=== PATIENT | female | born 1960 | race Caucasian/White ===

== ENCOUNTER 2020-03-26 00:05 | Outpatient (CLI) | payer BC, SELFPAY ==
[2020-03-26 18:07] LABS: SARS-CoV-2 RNA PCR Negative
== END 2020-03-26 00:06 | disposition home or self-care (01) ==
LOC: ANHCOVIDDT 00:05
PROVIDERS: PCP Physician Assistant; Visit Provider Orthopaedic Surgery
DX: Z01.812 Encounter for preprocedural laboratory examination (principal); Z20.828 Contact with and (suspected) exposure to other viral communicable diseases
CPT/HCPCS: 87635; C9803; U0003

== ENCOUNTER 2020-03-26 10:28 | Outpatient (CLI) | payer BC, SELFPAY ==
--- NOTE | 2020-03-26 10:29 | ECG_ITS ---
Measurements Intervals [place] Rate: 68 P: 3 DC: 120 QRS: 10 QRSD: 86 T: 24 QT: 411 QTc: 439 Interpretive Statements SINUS RHYTHM DELAYED PRECORDIAL R/S TRANSITION BASELINE ARTIFACT- I, II, III, AVR, AVL, AVF BORDERLINE ECG Electronically Signed On 03-26-2020 11:10:54 CDT by Pierre Hernandez D.O.
[2020-03-26 11:11] LABS: Blood Urea Nitrogen 14 mg/dL (7-17); Calcium 9.3 mg/dL (8.4-10.2); Carbon Dioxide 29 mmol/L (22-30); Chloride 100 mmol/L (98-107); Estimated Glomerular Filt Rate > 60; Glucose 100 mg/dL (65-105); Potassium 3.7 mmol/L (3.4-5.0); Sodium 137 mmol/L (137-145)
== END 2020-03-26 10:29 | disposition home or self-care (01) ==
LOC: ANHSURGERY 10:29
PROVIDERS: Anesthesiology; PCP Physician Assistant; Visit Provider Orthopaedic Surgery
DX: Z86.79 Personal history of other diseases of the circulatory system (principal); Z79.899 Other long term (current) drug therapy
CPT/HCPCS: 36415; 80048; 93005

== ENCOUNTER 2020-03-28 01:26 | Day surgery (SDC) | payer BC, SELFPAY ==
[2020-03-21 11:27] VITALS: BMI 27.4
[2020-03-28 06:11] VITALS: BP 134/79; PULSE 66; RESP 16; TEMP 36.1; O2SAT 99
[2020-03-28] MEDS: LACTATED RINGERS 1,000 ML 30 ML IV CONT (06:20)
--- NOTE | 2020-03-28 06:59 | WPDANESEPPF ---
Anes - Initial Pre Proc Eval Procedure: Operation Date: 03/28/20 07:30 Proposed Procedures p Right Carpal Tunnel Release, - Cj Hickman MD s Right Third Trigger Finger Release - Cj Hickman MD Date/Time: 03/28/20 06:59 Surgeon: Cj Hickman MD Pre Op Diagnosis: right carpal tunnel syndrome, rt 3rd trigger figer Patient Data Age: 60 Gender: F Height: 5 ft 6 in Weight: 80.8 kg Last Vital Signs Temp 36.1 C L 03/28/20 06:11 Pulse 66 03/28/20 06:11 Resp 16 03/28/20 06:11 BP 134/79 03/28/20 06:11 Pulse Ox 99 03/28/20 06:11 Allergies Allergy/AdvReac Type Severity Reaction Status Date / Time No Known Allergies Allergy Unverified 03/28/20 06:30 Home Medications Medication Instructions Recorded Confirmed Type aspirin 81 mg tablet,delayed 81 mg PO DAILY 12/21/19 03/28/20 History release conjugated estrogens 0.3 mg tablet 0.3 mg PO DAILY 12/21/19 03/28/20 History dicyclomine 10 mg capsule 10 mg PO TID PRN 12/21/19 03/28/20 History flaxseed oil 1,000 mg capsule 1,000 mg PO DAILY 12/21/19 03/28/20 History hydrochlorothiazide 25 mg tablet 25 mg PO DAILY 12/21/19 03/28/20 History omega-3 fatty acids 1,000 mg 1,000 mg PO DAILY 12/21/19 03/28/20 History capsule paroxetine HCl 25 mg 25 mg PO QAM 12/21/19 03/28/20 History tablet,extended release 24 hr pravastatin 40 mg tablet 40 mg PO DAILY 12/21/19 03/28/20 History vitamin B complex 1 tablet PO DAILY 12/21/19 03/28/20 History Patient hx anesthesia problems: none Family hx anesthesia problems: none [facility] Past Medical History Medical History Carpal tunnel syndrome on both sides History of anxiety History of gastroesophageal reflux (GERD) History of hyperlipidemia History of hypertension Irritable bowel syndrome Surgical History Surgical History History of hysterectomy History of tonsillectomy Family History Family History Father Family history of Parkinson's disease Family history of heart disease in male family member before age 55 Mother Family history of Parkinson's disease Social History Social History Smoking status: Never smoker Alcohol intake: current Anes - Eval Final PreProcedure Day of Procedure 03/28/20 06:59 Patient weight: overweight Heart: regular rate and rhythm Lungs: clear to auscultation Airway: Mallampati scale class II Neurological: alert and oriented Last oral intake: >/= 8 hours ASA classification: II Emergent: no Anesthetic plan: proceed Anesthesia type and monitoring: general GIVS and standard monitoring Informed Consent: The patient's anesthetic plan and its attendant risks and benefits were discussed with the patient/family/POA. Questions were solicited and answers provided to the satisfaction of the patient/family/POA.
--- NOTE | 2020-03-28 07:08 | WPDHPUPDATE1 ---
History and Physical Update Update Date/Time: 03/28/20 07:08 History and Physical has been reviewed, including an updated exam of the patient. There are NO changes in the patient's condition. Risks, benefits, and alternatives have been discussed and questions answered. Patient agrees to proceed with procedure.
[2020-03-28] MEDS: ceFAZolin 2 GM/D5W 50 ML 2 GM/50 ML BAG IVPB (07:22)
[2020-03-28] MEDS: BUPIVACAINE/EPINEPHRINE 0.5% 10 ML VIAL INFILTRATE (07:45)
[2020-03-28 08:04] VITALS: BP 129/72; PULSE 80; RESP 16; O2SAT 90
[2020-03-28 08:30] VITALS: BP 144/79; PULSE 62; RESP 16; O2SAT 94
[2020-03-28 08:50] VITALS: BP 150/83; PULSE 56; RESP 16; O2SAT 97
--- NOTE | 2020-03-28 17:10 | P.OP_ITS ---
Procedure Note - Detailed Date of procedure: 03/28/20 Pre-op diagnosis: right carpal tunnel syndrome, rt 3rd trigger figer Post-op diagnosis: same Procedure performed: 1. Carpal Tunnel Release 2. Third trigger finger release. Anesthesia: MAC Surgeon: Cj Hickman MD Estimated blood loss (mL): 1 Complications: None Condition: stable Findings: Operative details. The hand was prepped and draped in the usual sterile fashion sedation anesthesia was given with propofol. The proposed in cision was marked using typical anatomic landmarks. 4ML 0.5% Marcaine with epinephrine was injected along the incision line and at the distal forearm. The limb was exsanguinated and the tourniquet inflated to 250 millimeters of mercury. A longitudinal incision was taken sharply. Dissection was brought down to the transverse carpal ligament. Under direct vision the ligament was incised sharply. The proximal release was carried out with dissection scissors. The contents of the carpal canal were protected with a [place] elevator. The transverse carpal ligament was confirmed to be widely patent. Hemostasis was obtained. The wound was closed with a horizontal mattress Prolene suture. Attention was turned to the 3rd finger. A transverse incision was created over the A1 teagan, proximally. Careful dissection was carried down with the scissors. The A1 teagan was identified and transverse longitudinally. The flexor tendons were pulled free. The thickening of the tendon was identified. There was no further triggering. The tourniquet was released. The wound was closed with interrupted horizontal mattress Prolene suture. A sterile bulky dressing was applied. The patient was brought to the recovery room in stable condition. There were no complications.
== END 2020-03-28 09:10 | disposition home or self-care (01) ==
PROVIDERS: PCP Physician Assistant; Visit Provider Orthopaedic Surgery
PROC: (CPT 64721; principal; 2020-03-28 07:30)
PROC: (CPT 26055; 2020-03-28 07:30)
DX: G56.01 Carpal tunnel syndrome, right upper limb (principal); M65.331 Trigger finger, right middle finger; Z79.82 Long term (current) use of aspirin; I10 Essential (primary) hypertension; E78.5 Hyperlipidemia, unspecified; K21.9 Gastro-esophageal reflux disease without esophagitis; K58.9 Irritable bowel syndrome, unspecified; F41.9 Anxiety disorder, unspecified
CPT/HCPCS: 64721; 26055; J0690; J2250; J2704; J3010; J7120

== ENCOUNTER 2020-04-09 00:16 | Outpatient (CLI) | payer BC, SELFPAY ==
[2020-04-09 17:33] LABS: SARS-CoV-2 RNA PCR Negative
== END 2020-04-09 00:17 | disposition home or self-care (01) ==
LOC: ANHCOVIDDT 00:16
PROVIDERS: PCP Physician Assistant; Visit Provider Orthopaedic Surgery
DX: Z01.818 Encounter for other preprocedural examination (principal); Z20.828 Contact with and (suspected) exposure to other viral communicable diseases
CPT/HCPCS: 87635; C9803; U0003

== ENCOUNTER 2020-04-11 00:22 | Day surgery (SDC) | payer BC, SELFPAY ==
--- NOTE | 2020-04-10 12:13 | P.PNAN_ITS ---
Anes - Initial Pre Proc Eval Procedure: Operation Date: 04/11/20 07:30 Proposed Procedures p Left Carpal Tunnel Release - jC Hickman MD Date/Time: 04/10/20 12:13 Surgeon: Cj Hickman MD Pre Op Diagnosis: left carpal tunnel syndrome Patient Data Age: 60 Gender: F Height: Weight: 77.2 kg Allergies Allergy/AdvReac Type Severity Reaction Status Date / Time No Known Allergies Allergy Verified 04/01/20 10:18 Home Medications Medication Instructions Recorded Confirmed Type aspirin 81 mg tablet,delayed 81 mg PO DAILY 12/21/19 04/01/20 History release conjugated estrogens 0.3 mg tablet 0.3 mg PO DAILY 12/21/19 04/01/20 History dicyclomine 10 mg capsule 10 mg PO TID PRN 12/21/19 04/01/20 History flaxseed oil 1,000 mg capsule 1,000 mg PO DAILY 12/21/19 04/01/20 History hydrochlorothiazide 25 mg tablet 25 mg PO DAILY 12/21/19 04/01/20 History omega-3 fatty acids 1,000 mg 1,000 mg PO DAILY 12/21/19 04/01/20 History capsule paroxetine HCl 25 mg 25 mg PO QAM 12/21/19 04/01/20 History tablet,extended release 24 hr pravastatin 40 mg tablet 40 mg PO DAILY 12/21/19 04/01/20 History vitamin B complex 1 tablet PO DAILY 12/21/19 04/01/20 History hydrocodone-acetaminophen 1 tablet PO Q4H PRN #30 tablet MDD 03/28/20 04/01/20 Rx Six tablets Patient hx anesthesia problems: none Family hx anesthesia problems: none [facility] Social History Social History Smoking status: Never smoker Alcohol intake: current Anes - Eval Final PreProcedure Day of Procedure 04/10/20 12:13 Patient weight: normal Heart: regular rate and rhythm Lungs: clear to auscultation Airway: Mallampati scale class II Neurological: alert and oriented Last oral intake: >/= 8 hours ASA classification: II Emergent: no Anesthetic plan: proceed Anesthesia type and monitoring: general GIVS and LMA and standard monitoring Informed Consent: The patient's anesthetic plan and its attendant risks and benefits were discussed with the patient/family/POA. Questions were solicited and answers provided to the satisfaction of the patient/family/POA.
[2020-04-11 06:20] VITALS: BP 134/82; PULSE 73; RESP 16; TEMP 36.4; O2SAT 96
[2020-04-11 06:44] VITALS: BMI 28.3
[2020-04-11] MEDS: LACTATED RINGERS 1,000 ML 30 ML IV CONT (06:56)
--- NOTE | 2020-04-11 07:22 | PM.HPGS ---
History of Present Illness History of Present Illness Consent: Risks, benefits, and alternatives have been discussed and questions answered. Patient agrees to proceed with procedure. Chief complaint: left carpal tunnel syndrome Narrative: Kiara Dawn is a 60 year old female presents with left carpal tunnel syndrome. Numbness and tingling in the radial 3 digits. Also follow-up on the contralateral carpal tunnel syndrome release and trigger finger release. She has retained sutures. Review of Systems Constitutional: Constitutional: Denies fever(s) Cardiovascular: Cardiovascular: Denies dyspnea Respiratory: Respiratory: Denies cough and Denies dyspnea PMFSH Past Medical History Medical History Carpal tunnel syndrome on both sides History of anxiety History of gastroesophageal reflux (GERD) History of hyperlipidemia History of hypertension Irritable bowel syndrome Surgical History Surgical History History of hysterectomy History of tonsillectomy Family History Family History Father Family history of Parkinson's disease Family history of heart disease in male family member before age 55 Mother Family history of Parkinson's disease Social History Social History Smoking status: Never smoker Alcohol intake: current Meds Home Medications and Allergies Home Medications Medication Instructions Recorded Confirmed Type aspirin 81 mg tablet,delayed 81 mg PO DAILY 12/21/19 04/11/20 History release conjugated estrogens 0.3 mg tablet 0.3 mg PO DAILY 12/21/19 04/11/20 History dicyclomine 10 mg capsule 10 mg PO TID PRN 12/21/19 04/11/20 History flaxseed oil 1,000 mg capsule 1,000 mg PO DAILY 12/21/19 04/11/20 History hydrochlorothiazide 25 mg tablet 25 mg PO DAILY 12/21/19 04/11/20 History omega-3 fatty acids 1,000 mg 1,000 mg PO DAILY 12/21/19 04/11/20 History capsule paroxetine HCl 25 mg 25 mg PO QAM 12/21/19 04/11/20 History tablet,extended release 24 hr pravastatin 40 mg tablet 40 mg PO DAILY 12/21/19 04/11/20 History vitamin B complex 1 tablet PO DAILY 12/21/19 04/11/20 History hydrocodone-acetaminophen 1 tablet PO Q4H PRN #30 tablet MDD 03/28/20 04/11/20 Rx Six tablets Allergies Allergy/AdvReac Type Severity Reaction Status Date / Time No Known Allergies Allergy Verified 04/01/20 10:18 Vital Signs Vital Signs - 24 hr 04/11/20 06:20 Temperature 36.4 C Pulse Rate 73 Respiratory Rate 16 Blood Pressure 134/82 Pulse Oximetry 96 Exam Narrative: Exam Narrative: Healthy no distress. Alert orient x3. Unlabored breathing. Numbness and tingling in the radial 3 digits on the left hand. Right hand sutures intact without drainage. Good healing. Assessment and Plan Assessment and plan (1) Carpal tunnel syndrome on both sides: Code(s): G56.03 - Carpal tunnel syndrome, bilateral upper limbs Status: Acute Assessment and Plan: Left hand carpal tunnel syndrome. Will benefit from carpal tunnel release. The contralateral sutures from the hand will be removed.
[2020-04-11] MEDS: ceFAZolin 2 GM/D5W 50 ML 2 GM/50 ML BAG IVPB (07:28)
--- NOTE | 2020-04-11 07:57 | PM.PROC ---
Procedure Note - Detailed Date of procedure: 04/11/20 Pre-op diagnosis: left carpal tunnel syndrome Left Carpal Tunnel Syndrome Post-op diagnosis: same Procedure performed: Carpal Tunnel Release Left Suture removal right hand Anesthesia: MAC Surgeon: Cj Hickman MD Estimated blood loss (mL): 1 Complications: None Condition: stable Findings: Operative details. The hand was prepped and draped in the usual sterile fashion sedation anesthesia was given with propofol. The proposed incision was marked using typical anatomic landmarks. 4ML 0.5% Marcaine with epinephrine was injected along the incision line and at the distal forearm. The limb was exsanguinated and the tourniquet inflated to 250 millimeters of mercury. A longitudinal incision was taken sharply. Dissection was brought down to the transverse carpal ligament. Under direct vision the ligament was incised sharply. The proximal release was carried out with dissection scissors. The contents of the carpal canal were protected with a [place] elevator. The transverse carpal ligament was confirmed to be widely patent. The tourniquet was released. Hemostasis was obtained. The wound was closed with a horizontal mattress Prolene suture. A sterile bulky dressing was applied. Sutures at the right wrist and hand were removed. Adhesive bandage placed. The patient was brought to the recovery room in stable condition. There were no complications.
[2020-04-11 08:02] VITALS: BP 109/67; PULSE 78; RESP 14; O2SAT 95
[2020-04-11] MEDS: BUPIVACAINE/EPINEPHRINE 0.5% 10 ML VIAL 5 ML INFILTRATE (08:04)
[2020-04-11 08:20] VITALS: BP 118/60; PULSE 74; RESP 16
[2020-04-11 08:40] VITALS: BP 129/73; PULSE 62; RESP 16
== END 2020-04-11 08:50 | disposition home or self-care (01) ==
PROVIDERS: PCP Physician Assistant; Visit Provider Orthopaedic Surgery
PROC: (CPT 64721; principal; 2020-04-11 07:30)
DX: G56.02 Carpal tunnel syndrome, left upper limb (principal); I10 Essential (primary) hypertension; E78.5 Hyperlipidemia, unspecified; K21.9 Gastro-esophageal reflux disease without esophagitis; F41.9 Anxiety disorder, unspecified; K58.9 Irritable bowel syndrome, unspecified; Z79.82 Long term (current) use of aspirin
CPT/HCPCS: 64721; J0690; J1100; J2250; J2405; J2704; J3010; J7120

== ENCOUNTER 2020-10-20 11:54 | Outpatient (NON) | payer BC, SELFPAY ==
[2020-10-20 22:00] LABS: SARS-CoV-2 RNA PCR Negative
== END 2020-10-20 11:55 ==
PROVIDERS: PCP Physician Assistant; Visit Provider Physician Assistant
DX: R09.81 Nasal congestion (principal)
CPT/HCPCS: 87635; C9803; U0003

== ENCOUNTER 2020-11-04 00:34 | Outpatient (CLI) | payer BC, SELFPAY ==
[2020-11-04 19:42] LABS: SARS-CoV-2 RNA PCR Negative
== END 2020-11-04 00:35 | disposition home or self-care (01) ==
LOC: ANHCOVIDDT 00:34
PROVIDERS: PCP Physician Assistant; Visit Provider Internal Medicine Gastroenterology
DX: Z01.812 Encounter for preprocedural laboratory examination (principal); Z20.822 Contact with and (suspected) exposure to COVID-19
CPT/HCPCS: C9803; U0003

== ENCOUNTER 2020-11-07 00:15 | Day surgery (SDC) | payer BC, SELFPAY ==
[2020-10-27 10:45] VITALS: BMI 29.5
[2020-11-07 07:55] VITALS: BP 153/73; PULSE 86; RESP 16; TEMP 36.3; O2SAT 98
[2020-11-07] MEDS: LACTATED RINGERS 1,000 ML 150 ML IV CONT (08:12)
--- NOTE | 2020-11-07 08:51 | WPDANESEPPF ---
Anes - Initial Pre Proc Eval Procedure: Operation Date: 11/07/20 09:00 Proposed Procedures p Screening Colonoscopy - Des French MD Date/Time: 11/07/20 08:51 Surgeon: Des French MD Pre Op Diagnosis: Neoplasm Screening Patient Data Age: 60 Gender: F Height: 5 ft 6 in Weight: 79.2 kg Last Vital Signs Temp 97.3 F L 11/07/20 07:55 Pulse 86 11/07/20 07:55 Resp 16 11/07/20 07:55 BP 153/73 H 11/07/20 07:55 Pulse Ox 98 11/07/20 07:55 Allergies Allergy/AdvReac Type Severity Reaction Status Date / Time No Known Allergies Allergy Verified 11/07/20 07:54 Home Medications Medication Instructions Recorded Confirmed Type dicyclomine 10 mg capsule 10 mg PO TID PRN 12/21/19 10/27/20 History flaxseed oil 1,000 mg capsule 1,000 mg PO DAILY 12/21/19 10/27/20 History hydrochlorothiazide 25 mg tablet 25 mg PO DAILY 12/21/19 10/27/20 History omega-3 fatty acids 1,000 mg 1,000 mg PO DAILY 12/21/19 10/27/20 History capsule paroxetine HCl 25 mg 25 mg PO QAM 12/21/19 10/27/20 History tablet,extended release 24 hr pravastatin 40 mg tablet 40 mg PO DAILY 12/21/19 10/27/20 History bupropion HCl 150 mg PO DAILY 10/27/20 10/27/20 History Patient hx anesthesia problems: none Family hx anesthesia problems: none PMFSH Past Medical History Medical History Carpal tunnel syndrome on both sides History of anxiety History of gastroesophageal reflux (GERD) History of hyperlipidemia History of hypertension Irritable bowel syndrome Surgical History Surgical History History of hysterectomy History of tonsillectomy Family History Family History Father Family history of Parkinson's disease Family history of heart disease in male family member before age 55 Mother Family history of Parkinson's disease Social History Social History Smoking status: Never smoker Alcohol intake: current Drinks per week: 2 Substance use type: does not use Living arrangements: with family Spiritual care concerns: No Anes - Eval Final PreProcedure Day of Procedure 11/07/20 08:51 Patient weight: overweight Heart: regular rate and rhythm Lungs: clear to auscultation Airway: Mallampati scale class II Neurological: alert and oriented Last oral intake: >/= 8 hours ASA classification: II Emergent: no Anesthetic plan: proceed Anesthesia type and monitoring: general GIVS and standard monitoring Informed Consent: The patient's anesthetic plan and its attendant risks and benefits were discussed with the patient/family/POA. Questions were solicited and answers provided to the satisfaction of the patient/family/POA.
--- NOTE | 2020-11-07 08:52 | PM.HPGS ---
History of Present Illness History of Present Illness Consent: Risks, benefits, and alternatives have been discussed and questions answered. Patient agrees to proceed with procedure. Chief complaint: Neoplasm Screening Narrative: Kiara Dawn is a 60 year old female here for screening colonoscopy, last one 2011 Review of Systems Constitutional: Constitutional: Denies headache(s) and Denies weakness Eyes: Eyes: Denies blurry vision ENT: Reports Normal hearing present, Denies headache(s) and Denies neck pain Cardiovascular: Cardiovascular: Denies chest pain and Denies dyspnea Respiratory: Respiratory: Denies dyspnea Gastrointestinal: Gastrointestinal: Reports no additional gastrointestinal complaints Genitourinary: Genitourinary: Denies dysuria Musculoskeletal: Musculoskeletal: Denies neck pain Integumentary/Breasts: Skin/Breast: Denies dry skin Neurologic: Reports Normal hearing present, Denies headache(s) and Denies weakness Psychiatric: Psychiatric: Denies anxiety Endocrine: Endocrine: Denies change in body appearance Hematologic/Lymphatic: Hematologic/Lymphatic: Denies easy bleeding Allergic/Immunologic: Allergic/Immunologic: Denies urticaria PMFSH Past Medical History Medical History (Updated 11/07/20 @ 08:53 by Des French MD) Carpal tunnel syndrome on both sides Colon cancer screening History of anxiety History of gastroesophageal reflux (GERD) History of hyperlipidemia History of hypertension Irritable bowel syndrome Surgical History Surgical History History of hysterectomy History of tonsillectomy Family History Family History Father Family history of Parkinson's disease Family history of heart disease in male family member before age 55 Mother Family history of Parkinson's disease Social History Social History Smoking status: Never smoker Alcohol intake: current Drinks per week: 2 Substance use type: does not use Living arrangements: with family Spiritual care concerns: No Meds Home Medications and Allergies Home Medications Medication Instructions Recorded Confirmed Type dicyclomine 10 mg capsule 10 mg PO TID PRN 12/21/19 10/27/20 History flaxseed oil 1,000 mg capsule 1,000 mg PO DAILY 12/21/19 10/27/20 History hydrochlorothiazide 25 mg tablet 25 mg PO DAILY 12/21/19 10/27/20 History omega-3 fatty acids 1,000 mg 1,000 mg PO DAILY 12/21/19 10/27/20 History capsule paroxetine HCl 25 mg 25 mg PO QAM 12/21/19 10/27/20 History tablet,extended release 24 hr pravastatin 40 mg tablet 40 mg PO DAILY 12/21/19 10/27/20 History bupropion HCl 150 mg PO DAILY 10/27/20 10/27/20 History Allergies Allergy/AdvReac Type Severity Reaction Status Date / Time No Known Allergies Allergy Verified 11/07/20 07:54 Vital Signs Vital Signs - 24 hr 11/07/20 07:55 Temperature 97.3 F L Pulse Rate 86 Respiratory Rate 16 Blood Pressure 153/73 H Pulse Oximetry 98 Exam Const: General: comfortable and no acute distress HENMT: General nose exam: Normal nares present Eyes: General: appearance normal, both eyes and all related structures Neck: Neck: no JVD Resp: Auscultation: clear to auscultation bilaterally Cardio: Rate: regular rate Rhythm: regular rhythm GI: Inspection: non-distended GI Palp: Yes Soft to palpation Skin: General skin exam: normal color Neuro: General: gait normal Speech: normal speech Extrem: General: normal to inspection Psych: Mental Status: mental status grossly normal Assessment and Plan Assessment and plan (1) Colon cancer screening: Code(s): Z12.11 - Encounter for screening for malignant neoplasm of colon Status: Acute Assessment and Plan: will proceed with colonoscopy
[2020-11-07 09:14] VITALS: BP 127/79; PULSE 79; RESP 20; O2SAT 97
[2020-11-07 09:24] VITALS: BP 131/81; PULSE 74; RESP 20; O2SAT 98
[2020-11-07 09:34] VITALS: BP 132/83; PULSE 76; RESP 22; O2SAT 98
== END 2020-11-07 09:44 | disposition home or self-care (01) ==
PROVIDERS: PCP Physician Assistant; Visit Provider Internal Medicine Gastroenterology
PROC: 0DJD8ZZ Inspection of Lower Intestinal Tract, Via Natural or Artificial Opening Endoscopic (ICD-10-PCS; CPT 45378; principal; 2020-11-07 09:00)
DX: Z12.11 Encounter for screening for malignant neoplasm of colon (principal); G56.03 Carpal tunnel syndrome, bilateral upper limbs; F41.9 Anxiety disorder, unspecified; K21.9 Gastro-esophageal reflux disease without esophagitis; I10 Essential (primary) hypertension; K58.9 Irritable bowel syndrome, unspecified; K57.30 Diverticulosis of large intestine without perforation or abscess without bleeding; K64.8 Other hemorrhoids
CPT/HCPCS: 45378; C9803; J2704; J7120; U0003

== ENCOUNTER → 2020-11-14 16:51 | Outpatient (CLI) | payer BC, SELFPAY ==
--- NOTE | ~2020-11-14 | MM_ITS ---
EXAMINATION: MM screening effie BI w gurpreet HISTORY: Screening mammogram TECHNIQUE: Craniocaudal and mediolateral oblique 3-D tomosynthesis images were obtained and synthetic 2-D images were generated. CAD analysis was submitted and interpreted. COMPARISON: No prior mammogram is available for comparison at this institution. BREAST PARENCHYMAL COMPOSITION: There are scattered areas of fibroglandular density. FINDINGS: There is asymmetric possible 5 mm mass versus summation shadow in the anterior upper right breast on MLO view diagnostic right mammogram is recommended, with ultrasound if required. Otherwise there is no evidence of suspicious mass, calcification, or architectural distortion to suggest malign jose in either breast.. IMPRESSION: 1. 5 mm asymmetry in the upper anterior right breast 2. Recommend diagnostic right mammogram, with ultrasound if required. BI-RADS Category 0: Incomplete: Needs additional imaging evaluation. Reviewed, dictated and finalized at location A. 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
== END ==
PROVIDERS: PCP Physician Assistant; Visit Provider Physician Assistant
DX: Z12.31 Encounter for screening mammogram for malignant neoplasm of breast (principal); R92.8 Other abnormal and inconclusive findings on diagnostic imaging of breast
CPT/HCPCS: 77063; 77067

== ENCOUNTER → 2020-12-24 08:52 | Outpatient (CLI) | payer BC, SELFPAY ==
--- NOTE | ~2020-12-24 | MMUS_ITS ---
EXAMINATION: MM diagnostic effie RT w gurpreet, US breast RT limited HISTORY: Possible right breast mass on screening mammogram TECHNIQUE: Additional 3-D tomosynthesis images of the right breast were performed and synthetic 2-D i mages were generated. CAD analysis was submitted and interpreted. High resolution limited right breas t ultrasound was performed. COMPARISON: 11/14/2020, 04/19/2019, 09/30/2017 FINDINGS: MAMMOGRAPHIC FINDINGS: There is a return to baseline fibroglandular appearance with spot compression of the right breast. No masses identified. There is no suspicious calcification or architectural distortion. ULTRASOUND: There is no evidence of focal abnormal solid or cystic lesion in the vicinity of the mammographic fin ding in question. IMPRESSION: 1. No mammographic or sonographic evidence of malignancy. 2. Recommend routine screening mammography in one year. 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 No mammographic or sonographic evidence of malignancy. 2. Recommend routine screening mammography in one year. BI-RADS Category 1: Negative
== END ==
PROVIDERS: PCP Physician Assistant; Visit Provider Physician Assistant
DX: R92.8 Other abnormal and inconclusive findings on diagnostic imaging of breast (principal)
CPT/HCPCS: 76642; 77061; 77065; G0279

== ENCOUNTER 2021-04-29 10:31 | Outpatient (CLI) | payer BC, SELFPAY ==
--- NOTE | ~2021-04-29 | MR_ITS ---
EXAMINATION: MR knee LT wo con DATE: 04/29/2021 11:29 INDICATION: Left knee pain. Patellofemoral arthritis. TECHNIQUE: Magnetic resonance imaging (MRI) of the left knee was performed without intravenous contra st. Sequences included coronal PD-weighted FSE, coronal PD-weighted FS FSE, sagittal T2-weighted FSE , sagittal PD-weighted FS FSE and axial PD weighted fat saturated FSE. COMPARISON: None. FINDINGS: Medial compartment: Thickness radial tear/avulsion at the posterior root of the medial meniscus with approximately 7 mm d istraction and secondary medial extrusion of the meniscal body. Extensive chondral ulceration involvi ng greater than 50% the cartilage thickness and with mild chondral surface irregularity at the anteri or to central weightbearing medial femoral condyle. Additional deep chondral ulceration along the med ial half of the medial tibial plateau with relatively smooth chondral surface. There is marrow edema surrounding a curvilinear subarticular impaction fracture line underlying the anteromedial aspect of the weightbearing medial femoral condyle. Juxtaposed marrow edema with more amorphous subarticular ma rrow signal loss without discrete fracture line. Lateral compartment: Lateral meniscus is normal. Articular cartilage is normal. Patellofemoral compartment: Extensive full and near full-thickness cartilage loss throughout the lateral patellar facet and at th e superolateral aspect of the lateral trochlea, both regions with early remodeling of the articular c ortex and mild scattered subarticular edema. Less severe chondral ulceration and fissuring without de generative subarticular changes at the medial side of the patellofemoral compartment. Ligaments and tendons: Anterior and posterior cruciate ligaments are normal. Thickening and increased signal of the proximal medial collateral ligament particularly anteriorly without significant surrounding edema consistent with scarring related to chronic sprain. Similar thickening at and mild increased signal without surr ounding edema consistent with chronic scarring at the proximal fibular collateral ligament. The exten sor mechanism is normal. The visualized medial and lateral hamstring tendons as well as the iliotibia l band are normal. Fluid: Moderate-sized knee joint effusion with moderate amount of synovitis at the suprapatellar pouch. Ther e is a small amount of fluid tracking caudally along the popliteal recess. No loose osteochondral bod ies identified. Osseous/other: Bone alignment is normal. No pathologic marrow replacing process. IMPRESSION: 1. Full-thickness radial tear/avulsion with destruction of the posterior root of the medial meniscus. 2. Marrow edema consistent with bone contusion or stress reaction along the anteromedial aspect of th e medial tibial plateau and surrounding a nondisplaced minimally depressed subarticular fracture at t he anteromedial aspect of the weightbearing medial femoral condyle. These findings could be related t o an acute traumatic event or more likely stress fracture related to altered weight distribution resu lting from the meniscal tear. 3. 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 4. Likely reactive moderate sized left knee joint effusion. 5. Scarring consistent with chronic sprains of the proximal medial and fibular collateral ligaments. Reviewed, dictated and finalized at location A. IMPRESSION: 1. Full-thickness radial tear/avulsion with destruction of the posterior root o f the medial meniscus. 2. Marrow edema consistent with bone contusion or stress reaction along the ant ero
== END 2021-04-29 10:32 | disposition home or self-care (01) ==
PROVIDERS: PCP Physician Assistant; Visit Provider Orthopaedic Surgery
DX: M17.12 Unilateral primary osteoarthritis, left knee (principal); S83.242A Other tear of medial meniscus, current injury, left knee, initial encounter
CPT/HCPCS: 73721

== ENCOUNTER → 2022-06-30 12:14 | Outpatient (CLI) | payer BC, SELFPAY ==
--- NOTE | ~2022-06-30 | MM_ITS ---
EXAMINATION: MM screening [facility] BI w gurpreet HISTORY: Screening mammogram TECHNIQUE: Craniocaudal and mediolateral oblique 3-D tomosynthesis images were obtained and synthetic 2-D images were generated. CAD analysis was submitted and interpreted. COMPARISON: 12/24/2020, 11/14/2020, 04/19/2019, 10/19/2017, 12/16/2015 BREAST PARENCHYMAL COMPOSITION: There are scattered areas of fibroglandular density. FINDINGS: There is no suspicious mass, calcification, or architectural distortion to suggest malignan cy in either breast. There has been no suspicious interval change. IMPRESSION: 1. No mammographic evidence of malignancy. 2. Recommend routine screening mammography in one year. BI-RADS Category 1: Negative Reviewed, dictated and finalized at location A.
== END ==
PROVIDERS: PCP Physician Assistant; Visit Provider Obstetrics & Gynecology
DX: Z12.31 Encounter for screening mammogram for malignant neoplasm of breast (principal)
CPT/HCPCS: 77063; 77067

== ENCOUNTER → 2023-08-18 11:23 | Outpatient (CLI) | payer BC, SELFPAY ==
--- NOTE | ~2023-08-18 | MM_ITS ---
EXAMINATION: MM screening [facility] BI w gurpreet HISTORY: Screening TECHNIQUE: Craniocaudal and mediolateral oblique 3-D tomosynthesis images were obtained and synthetic 2-D images were generated. CAD analysis was submitted and interpreted. COMPARISON: Comparison to multiple prior studies sequentially, with oldest reviewed study dated 12/16. BREAST PARENCHYMAL COMPOSITION: There are scattered areas of fibroglandular density. FINDINGS: There is no evidence of suspicious mass, calcification, or architectural distortion to sugg est malignancy in either breast. There has been no suspicious interval change. IMPRESSION: 1. No mammographic evidence of malignancy. 2. Recommend routine screening mammography in one year. BI-RADS Category 1: Negative Reviewed, dictated and finalized at location A.
== END ==
PROVIDERS: PCP Physician Assistant; Visit Provider Obstetrics & Gynecology
DX: Z12.31 Encounter for screening mammogram for malignant neoplasm of breast (principal)
CPT/HCPCS: 77063; 77067

== ENCOUNTER 2024-02-08 13:04 | Outpatient (CLI) | payer OTHER, SELFPAY ==
--- NOTE | ~2024-02-08 | XR_ITS ---
Left Knee Technique: AP, lateral, and sunrise views were obtained. Clinical History: Osteoarthritis Findings: No fracture or dislocation is seen. Osseous alignment is anatomic. There is moderate tricom partmental degenerative change. Soft tissues are unremarkable. No joint effusion is seen. Impression: Moderate tricompartmental degenerative change. Reviewed, dictated and finalized at [facility]. Impression: Moderate tricompartmental degenerative change.
== END 2024-02-08 13:05 | disposition home or self-care (01) ==
LOC: ANHIMG 13:06
PROVIDERS: PCP Physician Assistant; Visit Provider Orthopaedic Surgery
DX: M17.12 Unilateral primary osteoarthritis, left knee (principal)
CPT/HCPCS: 73564

== ENCOUNTER 2024-03-21 08:38 | Outpatient (CLI) | payer OTHER, SELFPAY ==
[2024-03-27 16:13] VITALS: BMI 27.1
--- NOTE | 2024-03-27 16:13 | WPDHOMESLEEP ---
Sleep Study - Home Unattended Date of Study: 03/21/24 Ordering Provider: Balbina Galdamez, PARacheal Interpreting Provider: Nori Freeman, DO Home Sleep Study Type: Watch PAT Height: 1.64 m Weight: 73.028 kg Body Mass Index: 27.1 Neck Circumference (inches): 14.5 [place]: 3 Reason for Sleep Study Difficulty staying asleep Sleep History The patient is a 64-year-old female with anxiety, insomnia, hypothyroidism, hypertension, hyperlipidemia, irritable bowel syndrome, prediabetes and seasonal allergies that had a sleep study ordered by her primary care for evaluation of sleep apnea. The patient rarely awakens from sleep short of breath. She occasionally awakens at night with heartburn, belching or cough. She occasionally snores but AH rarely loud enough that others complain. She occasionally has trouble sleeping when she has a cold. She rarely wakes up gasping for air throughout the night. She rarely has breathing problems at night observed by herself or others. She occasionally sweats excessively at night. She occasionally has heart palpitations or irregular heartbeats during the night. She rarely falls asleep during the day but never while driving. She occasionally has trouble at school or work due to sleepiness. She denies sleep paralysis. She frequently experiences vivid dreamlike scenes upon awakening or falling asleep. She rarely feels afraid of falling asleep. She occasionally has nightmares. She frequently remembers her dreams. She frequently has thoughts racing through her mind. She occasionally feels sad or depressed. She frequently has anxiety. She occasionally has muscular tension. She rarely notices parts of her body jerk. She denies kicking during the night. She rarely has crawling and aching feelings in her legs and rarely has leg pain during the night. She occasionally grinds her teeth during sleep and frequently has morning jaw pain. She is occasionally bothered by pain during the day and occasionally awakened by pain during the night. She occasionally wakes up feeling stiff in the morning. She occasionally wakes up with sore or achy muscles. She frequently wakes up with pain in the neck, spine or other joints. She goes to bed at 10:00 p.m. on weekdays and between 11 to 11:30 p.m. on the weekends. It can take up to several hours for her to fall asleep. She wakes up 2-3 times throughout the night for unknown reasons and it can take 1-2 hours for her to fall back asleep. She wakes up at 7:30 a.m. on weekdays and at 9:00 a.m. on the weekends. She typically spent 8 hours and bed but is unsure how long she is actually sleeping. She will stay in bed for 30 minutes after waking up in the morning. She currently lives with her . She denies consuming any caffeinated beverages within 2 hours of bedtime. She denies engaging in physical exercise before bedtime. She will read watch television before falling asleep. She denies taking naps in the afternoon or the evening. She consumes 2 cups of caffeinated beverage per day. She will consume alcoholic beverages on the weekend. She denies tobacco and recreational drug use. [facility] [place] Past Medical History Medical History Anxiety Carpal tunnel syndrome on both sides Colon cancer screening Effusion, left knee History of anxiety History of gastroesophageal reflux (GERD) History of hyperlipidemia History of hypertension Hyperlipidemia Hypertension Impingement syndrome of right shoulder Irritable bowel syndrome Patellofemoral arthritis of left knee Right shoulder pain Screening for breast cancer Trigger finger, right middle finger Surgical History Surgical History History of carpal tunnel surgery BILATERAL History of hysterectomy History of tonsillectomy Hx of eye surgery UPPER EYELIDS Family History Family History (Reviewed 03/27/24 @
== END 2024-03-22 07:30 | disposition home or self-care (01) ==
PROVIDERS: PCP Physician Assistant; Visit Provider Physician Assistant
DX: G47.9 Sleep disorder, unspecified (principal)
CPT/HCPCS: 95800

== ENCOUNTER 2024-07-09 08:43 | Outpatient (CLI) | payer OTHER, SELFPAY ==
--- NOTE | ~2024-07-09 | XR_ITS ---
EXAMINATION: XR knee LT min 4V DATE: 07/09/2024 08:58 INDICATION: Left knee osteoarthritis. TECHNIQUE: 4 views of left knee were obtained. COMPARISON: Left knee radiographs 02/08/2024 FINDINGS: There is lateral subluxation of patella. No fracture. There is moderate osteoarthritis of m edial compartment, mild osteoarthritis of lateral compartment, and severe osteoarthritis of patellofe moral compartment. There is a small knee joint effusion. IMPRESSION: 1. Severe left knee osteoarthritis. 2. Small left knee joint effusion. Reviewed, dictated and finalized at location A.
== END 2024-07-09 08:44 | disposition home or self-care (01) ==
LOC: ANHIMG 08:45
PROVIDERS: PCP Physician Assistant; Visit Provider Orthopaedic Surgery
DX: M17.12 Unilateral primary osteoarthritis, left knee (principal); M25.462 Effusion, left knee
CPT/HCPCS: 73564

== ENCOUNTER 2025-03-19 14:08 | Outpatient (CLI) | payer MEDICARE, SELFPAY ==
--- NOTE | ~2025-03-19 | DEXA_ITS ---
Bone Density Report Name: TEODORO MAGDALENO Age: 64 Sex: Female Ethnicity: White Date of : 1960 Indication: postmenopausal; screening for osteoporosis; height loss; hysterectomy; Referring Provider: YIFAN MONTES Study: Bone densitometry was performed. Exam Date: March 19, 2025 Accession number: [id number] Bone Density: Region BMD T-score Z-score Classification AP Spine(L1-L4) 0.994 -0.5 1.3 Normal Femoral Neck (Left) 0.664 -1.7 -0.2 Osteopenia Total Hip (Left) 0.838 -0.9 0.4 Normal Femoral Neck (Right) 0.685 -1.5 0.0 Osteopenia Total Hip (Right) 0.906 -0.3 0.9 Normal Total Hip Mean 0.872 -0.6 0.7 Normal World Health Organization criteria for BMD impression classify patients as: Normal (T-score at or above -1.0), Osteopenia (T-score between -1.0 and -2.5), or Osteoporosis (T-score at or below -2.5). 10-year Fracture Risk(1): Major Osteoporotic Fracture 8.9% Hip Fracture 1.1% Reported Risk Factors: [place] (), Neck BMD=0.664, BMI=23.5 (1) FRAX(R) Version 3.08. Fracture probability calculated for an untreated patient. Fracture probability may be lower if the patient has received treatment. Clinical Information Provided by Patient: Has used the following medications: Vitamin D, Calcium Has the following medical conditions: Hysterectomy Patient maximum height was 65.5 Menopause Age: 37 Drinks caffeinated beverages Onset of menses at age 11 Number of children 3 Impression: The patient has low bone mass, based on the Left Femoral Neck T-score. The patient has an estimated ten-year risk of hip fracture of 1.1% and an estimated ten-year risk of major fracture of 8.9%, based on the WHO FRAX algorithm. Discussion: BONE DENSITY IS LOW AT ONE OR MORE SKELETAL SITES. This patient's lowest T-score is low at one or more skeletal sites. It meets the World Health Organization's (WHO) criteria for ?low bone mass? (T-score between -1.0 and -2.5). The patient's 10-year risk of fracture as calculated by FRAX is less than the threshold where pharmacological therapy is recommended by the National Osteoporosis Foundation (NOF). However, all treatment decisions require clinical judgment and consideration of individual patient factors, including patient preferences, comorbidities, previous drug use, risk factors not captured in the FRAX model (e.g., frailty, falls, vitamin D deficiency, increased bone turnover, interval significant decline in bone density) and possible under or overestimation of fracture risk by FRAX. The patient should follow a healthful lifestyle (good nutrition with adequate calcium and vitamin D, and appropriate weight-bearing exercise). Follow-Up: Consider repeating this study in 2 to 3 years to reassess this patient's status, or sooner if there is some new clinical indication. Reported by: ALEJANDRO on 03/19/2025 2:45:00 PM. Reviewed, dictated and finalized at location A.
--- OUTSIDE RECORDS SUMMARY | 2025-03-19 14:14 | XMS_ITS | Data Portability ---
Author Organization [place] [facility], Main Office Address [address] [place] [address] Assessment Encounter Date Assessment Date Assessment LastModified by Organization Details LastModified Time 03/23/2023 03/23/2023 colonoscopy 2020, repeat 10 years. mammogram due in may with gyne labs are due. Not available 03/23/2023 10:39:58 10/05/2023 10/05/2023 colonoscopy 2020, repeat 10 years. mammogram UTD labs are UTD Not available 10/26/2023 15:55:37 Plan of Treatment Reminders Order Date Submit Date Provider Last Modified By Organization Details Last Modified Time Details Appointments None recorded . Lab lipid panel, serum 023 03/23/20 23 [email or web address] [facility], [address], [place], [address], 3 10:33:08 HbA1c (hemoglo bin A1c), blood 023 03/23/20 23 [email or web address] 4 [facility], [address], [address], [place], [address], 3 10:33:20 CMP, serum or plasma 023 03/23/20 23 [email or web address] 4 [facility], [address], [address], [place], [address], 3 10:33:20 CBC w/ auto diff 023 03/23/20 23 [email or web address] 4 [facility], [address], [address], [place], [address], 3 10:33:20 TSH + free T4, serum 023 03/23/20 23 [email or web address] [facility], [address], [address], [place], [address], 3 10:32:54 Referral None recorded . Procedures None recorded . Surgeries None recorded . Imaging None recorded . Medication Orders None recorded . Patient TargetsNo targets recorded. Patient InstructionsNo instructions recorded. Reason for Referral None Reported. Results Created Date Observation Date Name Description Value Unit Range Abnormal Flag Note LastModifiedBy Organization Detail LastModifiedTime 01/16/2001/16/2022 HEMOG LOBIN A1C hemoglobin A1C 5.9 % 4.8-5. 6 above high normal Predi abete s: 5.7 - 6.4 Diabe mary: >6.4 Glyce steve contr ol for adult s with diabe mary: <7.0 Not Available [facility] ([facility]) [address] [place], [address], 01/16/2022 06:13:01 01/16/20 22 01/16/2022 LIPID PANEL WITH LDL/H DL RATIO cholesterol, total 248 mg/dL 100-19 9 above high normal Not Available [facility] ([facility]) [address] [place], [address], 01/16/2022 06:13:01 01/16/20 22 01/16/2022 LIPID PANEL WITH LDL/H DL RATIO triglyceride s 173 mg/dL 0-149 above high normal Not Available [facility] ([facility]) [address] [place], [address], 01/16/2022 06:13:01 01/16/20 22 01/16/2022 LIPID PANEL WITH LDL/H DL RATIO HDL cholesterol 58 mg/dL >39 Not Available [facility]) [address] [place], [address], 01/16/2022 06:13:01 01/16/20 22 01/16/2022 LIPID PANEL WITH LDL/H DL RATIO VLDL cholesterol gissel 31 mg/dL 5-40 Not Available [facility]) [address] [place], [address], 01/16/2022 06:13:01 01/16/20 22 01/16/2022 LIPID PANEL WITH LDL/H DL RATIO LDL chol calc ([facility]) 159 mg/dL 0-99 above high normal Not Available [facility] ([facility]) [address] [place], [address], 01/16/2022 06:13:01 01/16/20 22 01/16/2022 LIPID PANEL WITH LDL/H DL 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 2 LDL/H DL Ratio Men Women 1/2 Avg.R isk 1.0 1.5 Avg.R isk 3.6 3.2 2X Avg.R isk 6.2 5.0 3X Avg.R isk 8.0 6.1 Not Available [facility] ([facility]) [address] [place], [address], 01/16/2022 06:13:01 01/16/20 22 01/16/2022 COMP. METAB OLIC PANEL (14) glucose 104 mg/dL 65-99 above high normal Not Available [facility] ([facility]) [address] [place], [address], 01/16/2022 06:13:00 01/16/20 22 01/16/2022 COMP. METAB OLIC PANEL (14) BUN 17 mg/dL 8-27 Not Available [facility] ([facility]) [address] [place], [address], 01/16/2022 06:13:00 01/16/20 22 01/16/2022 COMP. METAB OLIC PANEL (14) creatinine 0.80 mg/dL 0.57-1 .00 Not Available [facility] ([facility]) [address] [place], [address], 01/16/2022 06:13:00 01/16/20 22 01/16/2022 COMP. METAB OLIC PANEL (14) eGFR 84 mL/mi n/1.7 3 >59 Not Available [facility] ([facility]) [address] [place], [address], 01/16/2022 06:13:00 01/16/20 22 01/16/2022 COMP. METAB OLIC PANEL (14) BUN/creatini ne ratio 21 12-28 Not Available [facility]) [address] [facility], [place], [address], 01/16/2022 06:13:00 01/16/20 22 01/16/2022 COMP. METAB OLIC PANEL (14) sodium 140 mmol/ L 134-14 4 Not Available [facility] ([facility]) [address] [place], [address], 01/16/2022 06:13:00 01/16/20 22 01/16/2022 COMP. METAB OLIC PANEL (14) potassium 3.9 mmol/ L 3.5-5. 2 Not Available [facility] ([facility]) [address] [place], [address], 01/16/2022 06:13:00 01/16/20 22 01/16/2022 COMP. METAB OLIC PANEL (14) chloride 100 mmol/ L 96-106 Not Available [facility] ([facility]) [address] [place], [address], 01/16/2022 06:13:00 01/16/20 22 01/16/2022 COMP. METAB OLIC PANEL (14) carbon dioxide, total 23 mmol/ L 20-29 Not Available [facility] ([facility]) [address] [place], [address], 01/16/2022 06:13:00 01/16/20 22 01/16/2022 COMP. METAB OLIC PANEL (14) calcium 9.9 mg/dL 8.7-10 .3 Not Available [facility] ([facility]) [address] [place], [address], 01/16/2022 06:13:00 01/16/20 22 01/16/2022 COMP. METAB OLIC PANEL (14) protein, total 7.1 g/dL 6.0-8. 5 Not Available [facility] ([facility]) [address] [place], [address], 01/16/2022 06:13:00 01/16/20 22 01/16/2022 COMP. METAB OLIC PANEL (14) albumin 4.9 g/dL 3.8-4. 8 above high normal Not Available [facility] ([facility]) [address] [place], [address], 01/16/2022 06:13:00 01/16/20 22 01/16/2022 COMP. METAB OLIC PANEL (14) globulin, total 2.2 g/dL 1.5-4. 5 Not Available [facility] ([facility]) [address] [place], [address], 01/16/2022 06:13:00 01/16/20 22 01/16/2022 COMP. METAB OLIC PANEL (14) A/G ratio 2.2 1.2-2. 2 Not Available [facility] ([facility]) [address] [place], [address], 01/16/2022 06:13:00 01/16/2019 0101/16/2022 COMP. METAB OLIC PANEL (14) bilirubin, total 0.5 mg/dL 0.0-1. 2 Not Available [facility] ([facility]) [address] [facility], [place], [address], 01/16/2022 06:13:00 01/16/20 22 01/16/2022 COMP. METAB OLIC PANEL (14) alkaline phosphatase 94 IU/L 44-121 Not Available [facility]) [address] [facility], [place], [address], 01/16/2022 06:13:00 01/16/20 22 01/16/2022 COMP. METAB OLIC PANEL (14) AST (SGOT) 36 IU/L 0-40 Not Available [facility] ([facility]) [address] [facility], [place], [address], 01/16/2022 06:13:00 01/16/20 22 01/16/2022 COMP. METAB OLIC PANEL (14) ALT (SGPT) 41 IU/L 0-32 above high normal Not Available [facility] ([facility]) [address] [facility], [place], [address], 01/16/2022 06:13:00 01/16/20 22 01/16/2022 CBC WITH DIFFE RENTI AL/PL ATELE T WBC 7.1 x10e3 /uL 3.4-10 .8 Not Available [facility] ([facility]) [address] [place], [address], 01/16/2022 06:13:00 01/16/20 22 01/16/2022 CBC WITH DIFFE RENTI AL/PL ATELE T RBC 4.44 x10e6 /uL 3.77-5 .28 Not Available [facility] ([facility]) [address] [facility], [place], [address], 01/16/2022 06:13:00 01/16/20 22 01/16/2022 CBC WITH DIFFE RENTI AL/PL ATELE T hemoglobin 13.5 g/dL 11.1-1 5.9 Not Available [facility] ([facility]) [address] [place], [address], 01/16/2022 06:13:00 01/16/20 22 01/16/2022 CBC WITH DIFFE RENTI AL/PL ATELE T hematocrit 40.3 % 34.0-4 6.6 Not Available [facility] ([facility]) [address] [facility], [place], [address], 01/16/2022 06:13:00 01/16/20 22 01/16/2022 CBC WITH DIFFE RENTI AL/PL ATELE T MCV 91 fL 79-97 Not Available [facility] ([facility]) [address] [place], [address], 01/16/2022 06:13:00 01/16/20 22 01/16/2022 CBC WITH DIFFE RENTI AL/PL ATELE T MCH 30.4 pg 26.6-3 3.0 Not Available [facility] ([facility]) [address] [place], [address], 01/16/2022 06:13:00 01/16/20 22 01/16/2022 CBC WITH DIFFE RENTI AL/PL ATELE T MCHC 33.5 g/dL 31.5-3 5.7 Not Available [facility] ([facility]) [address] [place], [address], 01/16/2022 06:13:00 01/16/20 22 01/16/2022 CBC WITH DIFFE RENTI AL/PL ATELE T RDW 13.1 % 11.7-1 5.4 Not Available [facility] ([facility]) [address] [place], [address], 01/16/2022 06:13:00 01/16/20 22 01/16/2022 CBC WITH DIFFE RENTI AL/PL ATELE T platelets 272 x10e3 /uL 150-45 0 Not Available [facility] ([facility]) [address] [facility], [place], [address], 01/16/2022 06:13:00 01/16/20 22 01/16/2022 CBC WITH DIFFE RENTI AL/PL ATELE T neutrophils 49 % not estab. Not Available [facility] ([facility]) [address] [facility], [place], [address], 01/16/2022 06:13:00 01/16/20 22 01/16/2022 CBC WITH DIFFE RENTI AL/PL ATELE T lymphs 40 % not estab. Not Available [facility] ([facility]) [address] [place], [address], 01/16/2022 06:13:00 01/16/20 22 01/16/2022 CBC WITH DIFFE RENTI AL/PL ATELE T monocytes 9 % not estab. Not Available [facility] ([facility]) [address] [place], [address], 01/16/2022 06:13:00 01/16/20 22 01/16/2022 CBC WITH DIFFE RENTI AL/PL ATELE T eos 2 % not estab. Not Available [facility] ([facility]) [address] [place], [address], 01/16/2022 06:13:00 01/16/20 22 01/16/2022 CBC WITH DIFFE RENTI AL/PL ATELE T basos 0 % not estab. 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 0 Not Available [facility] ([facility]) [address] [facility], [place], [address], 01/16/2022 06:13:00 01/16/20 22 01/16/2022 CBC WITH DIFFE RENTI AL/PL ATELE T lymphs (absolute) 2.9 x10e3 /uL 0.7-3. 1 Not Available [facility] ([facility]) [address] [place], [address], 01/16/2022 06:13:00 01/16/20 22 01/16/2022 CBC WITH DIFFE RENTI AL/PL ATELE T monocytes(ab solute) 0.6 x10e3 /uL 0.1-0. 9 Not Available [facility] ([facility]) [address] [place], [address], 01/16/2022 06:13:00 01/16/20 22 01/16/2022 CBC WITH DIFFE RENTI AL/PL ATELE T eos (absolute) 0.2 x10e3 /uL 0.0-0. 4 Not Available [facility] ([facility]) [address] [place], [address], 01/16/2022 06:13:00 01/16/20 22 01/16/2022 CBC WITH DIFFE RENTI AL/PL ATELE T baso (absolute) 0.0 x10e3 /uL 0.0-0. 2 Not Available [facility] ([facility]) [address] [place], [address], 01/16/2022 06:13:00 01/16/20 22 01/16/2022 CBC WITH DIFFE RENTI AL/PL ATELE T immature granulocytes 0 % not estab. Not Available [facility] ([facility]) [address] [facility], [place], [address], 01/16/2022 06:13:00 01/16/20 22 01/16/2022 CBC WITH DIFFE RENTI AL/PL ATELE T immature grans (abs) 0.0 x10e3 /uL 0.0-0. 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 Not Available [facility]) [address] [facility], [place], [address], 01/16/2022 06:13:00 01/16/20 22 01/16/2022 TSH+F REE T4 TSH 4.690 uIU/m L 0.450- 4.500 above high normal Not Available [facility] ([facility]) [address] [place], [address], 01/16/2022 06:13:00 01/16/2001/16/2022 TSH+F REE T4 T4,free(dire ct) 0.85 NG/dL 0.82-1 .77 Not Available [facility] ([facility]) [address] [place], [address], 01/16/2022 06:13:00 01/16/20 22 01/16/2022 URINA LYSIS , ROUTI NE W/RFX specific gravity 1.019 1.005- 1.030 Not Available [facility] ([facility]) [address] [facility], [place], [address], 01/16/2022 06:12:59 01/16/20 22 01/16/2022 URINA LYSIS , ROUTI NE W/RFX pH 5.0 5.0-7. 5 Not Available [facility] ([facility]) [address] [facility], [place], [address], 01/16/2022 06:12:59 01/16/20 22 01/16/2022 URINA LYSIS , ROUTI NE W/RFX urine-color yellow yellow Not Available [facility] ([facility]) [address] [facility], [place], [address], 01/16/2022 06:12:59 01/16/20 22 01/16/2022 URINA LYSIS , ROUTI NE W/RFX appearance clear clear Not Available [facility] ([facility]) [address] [facility], [place], [address], 01/16/2022 06:12:59 01/16/20 22 01/16/2022 URINA LYSIS , ROUTI NE W/RFX WBC esterase negati ve negati ve Not Available [facility] ([facility]) [address] [facility], [place], [address], 01/16/2022 06:12:59 01/16/20 22 01/16/2022 URINA LYSIS , ROUTI NE W/RFX protein negati ve negati ve/tra ce Not Available [facility] ([facility]) [address] [facility], [place], [address], 01/16/2022 06:12:59 01/16/2001/16/2022 URINA LYSIS , ROUTI NE W/RFX glucose negati ve negati ve Not Available [facility] ([facility]) [address] [facility], [place], [address], 01/16/2022 06:12:59 01/16/20 22 01/16/2022 URINA LYSIS , ROUTI NE W/RFX ketones negati ve negati ve Not Available [facility] ([facility]) [address] [place], [address], 01/16/2022 06:12:59 01/16/20 22 01/16/2022 URINA LYSIS , ROUTI NE W/RFX occult blood negati ve negati ve Not Available [facility] ([facility]) [address] [place], [address], 01/16/2022 06:12:59 01/16/2001/16/2022 URINA LYSIS , ROUTI NE W/RFX bilirubin negati ve negati ve Not Available [facility] ([facility]) [address] [place], [address], 01/16/2022 06:12:59 01/16/2001/16/2022 URINA LYSIS , ROUTI NE W/RFX urobilinogen ,semi-qn 0.2 mg/dL 0.2-1. 0 Not Available [facility] ([facility]) [address] [place], [address], 01/16/2022 06:12:59 01/16/20 22 01/16/2022 URINA LYSIS , ROUTI NE W/RFX nitrite, urine negati ve negati ve Not Available [facility] ([facility]) [address] [place], [address], 01/16/2022 06:12:59 01/16/2001/16/2022 URINA LYSIS , ROUTI NE W/RFX microscopic examination commen t Micro scopi c not indic ated and not perfo rmed. Not Available [facility] ([facility]) [address] [place], [address], 01/16/2022 06:12:59 04/30/20 21 04/29/2021 MRI, knee, w/o contr ast No observ ation record ed. [id number] [facility] (Imaging) [address], [place], [address], 12/29/2022 05:07:19 09/21/20 22 06/30/2022 MAMMO , scree aman, digit al, bilat eral No observ ation record ed. [id number] [facility] [address], [place], [address], 12/29/2022 05:07:19 10/06/20 23 08/18/2023 MAMMO , scree aman, digit al, bilat eral No observ ation record ed. [email or web address] [facility] [address], [place], [address], 10/10/2023 18:03:31 Result Notes None recorded. Problems Name Problem SNOMED Code Status Onset Date Resolution Date Notes Provider Name and Address Organization Details Recorded Time Acute urinary tract infection 742061049 Active 2022 BRII Marshall, [place] - [facility] 3 11:18:23 Irritable bowel syndrome 18240141 Active Not Available [facility] 3 04:52:21 Benign essential hypertensi on 6041864 Active Not Available [facility] 3 04:52:21 Hyperchole sterolemia 82264565 Active 2016 Not Available [facility] 3 04:52:21 Mammograph y abnormal 384505296 Completed Not Available [facility] 3 04:52:21 Irritable bowel syndrome with diarrhea 920402780 Active Not Available [facility] 3 04:52:21 Mixed hyperlipid emia 688390178 Active Not Available [facility] 3 04:52:21 Vitamin D deficiency 26364080 Active Not Available [facility] 3 04:52:21 Depressive disorder 63688135 Active 2016 Not Available [facility] 3 04:52:21 Hypertensi ve disorder 80988515 Active 2016 Not Available [facility] 3 04:52:21 Hypothyroi dism 60115431 Active 2021 Not Available [facility] 3 04:52:21 Anxiety 64687858 Active 2016 Not Available [facility] 3 04:52:21 Tenderness of breast 22224144 Completed Not Available [facility] 3 04:52:22 Moderate anxiety 44658264 Active Not Available [facility] 3 04:52:22 COVID-19 485948357 Active 2021 Not Available [facility] 3 04:52:22 Impaired glucose tolerance 8627962 Active 2021 Not Available [facility] 3 04:52:22 Problem Notes None recorded. Procedures Surgical History Date Name Laterality Status Provider Name and Address Organization Details Recorded Time 11/07/19 Date of Last Colonoscopy completed Not Available [facility] 12/29/2022 04:42:06 11/07/19 21 Colonoscopy completed Not Available [facility] 12/30/19 04:42:10 03/31/20 20 Carpal tunnel surgery completed Not Available [facility] 12/29/2022 04:42:10 12/01/19 17 Eye Surgery completed Not Available [facility] 12/30/19 04:42:10 [employer]OD [employer]ER Surgery completed Not Available [facility] 12/29/2022 04:42:10 Imaging Results Imaging Date Name Status LastModified by Organiz ation Details LastModified Time 04/29/2021 MRI, knee, w/o contrast completed [id number] [address] [place] [address] (Imaging) [address], [place], [address], 12/29/2022 05:07:19 06/30/2022 MAMMO, screening, digital, bilateral completed [id number] [facility] [address], [place], [address], 12/29/2022 05:07:19 08/18/2023 MAMMO, screening, digital, bilateral completed [email or web address] [facility] [address], [place], [address], 10/10/2023 18:03:31 Procedure Notes None recorded. Medical Equipment None Reported. Allergies No known drug allergies Medications Name Sig Start Date Stop Date Status Note LastModified by Organization Details LastModified Time amoxicillin 500 mg capsule TAKE ONE CAPSULE BY MOUTH EVERY 6 HOURS UNTIL ALL TAKEN 04/12 completed Not Available Not Available Not Available bupropion HCl SR 150 mg tablet,12 hr sustained-r elease TAKE 1 TABLET BY MOUTH TWICE DAILY 03/23 completed Not Available Not Available Not Available azithromyci n 250 mg tablet active Not Available Not Available Not Available pravastatin 40 mg tablet TAKE 1 TABLET BY MOUTH EVERY DAY 09/06 completed Not Available Not Available Not Available hydrocodone 5 mg-acetamin ophen 325 mg tablet 01/06 completed Not Available Not Available Not Available lisinopril 20 mg tablet active Not Available Not Available Not Available ondansetron HCl 4 mg tablet TK 1 T PO Q 6 H PRN 01/06 completed Not Available Not Available Not Available fluorouraci l 5 % topical cream APPLY CREAM TOPICALLY TWICE DAILY FOR 2 WEEKS active Not Available Not Available No t Available tretinoin 0.05 % topical cream APPLY PEA SIZE AMOUNT HS 01/06 completed Not Available Not Available Not Available ciprofloxac in 500 mg tablet TAKE 1 TABLET BY MOUTH EVERY 12 HOURS FOR 7 DAYS 03/22 completed Not Available Not Available Not Available sulfamethox azole 800 mg-trimetho prim 160 mg tablet 12/19 completed Not Available Not Available Not Available losartan 100 mg-hydrochl orothiazide 25 mg tablet TAKE 1 TABLET BY MOUTH EVERY DAY active Not Available Not Available No t Available terbinafine HCl 250 mg tablet TAKE 1 TABLET BY MOUTH EVERY DAY 08/18 completed Not Available Not Available Not Available pravastatin 80 mg tablet TAKE 1 TABLET BY MOUTH EVERY DAY active Not Available Not Available No t Available pravastatin 10 mg tablet TAKE 1 TABLET BY MOUTH EVERY EVENING 08/17 completed Not Available Not Available Not Available hydrocodone 7.5 mg-acetamin ophen 325 mg tablet 09/11 completed Not Available Not Available Not Available Synthroid 50 mcg tablet TAKE 1 TABLET BY MOUTH EVERY DAY IN THE MORNING active Not Available Not Available No t Available pravastatin 20 mg tablet TAKE 1 TABLET BY MOUTH EVERY EVENING 09/11 completed Not Available Not Available Not Available hydrochloro thiazide 25 mg tablet TAKE 1 TABLET BY MOUTH DAILY active Not Available Not Available No t Available ergocalcife rol (vitamin D2) 1,250 mcg (50,000 unit) capsule TAKE 1 CAPSULE BY MOUTH EVERY WEEK DIRECTED 08/18 completed Not Available Not Available Not Available diazepam 10 mg tablet 04/19 completed Not Available Not Available Not Available estradiol 0.01% (0.1 mg/gram) vaginal cream INSERT 1 GRAM VAGINALLY 3 TIMES A WEEK 01/20 completed Not Available Not Available Not Available losartan 50 mg-hydrochl orothiazide 12.5 mg tablet TAKE 1 TABLET BY MOUTH EVERY DAY 09/06 completed Not Available Not Available Not Available cefdinir 300 mg capsule Take 1 capsule every 12 hours by oral route. active Not Available Not Available No t Available dicyclomine 10 mg capsule TAKE ONE CAPSULE BY MOUTH THREE TIMES DAILY NEEDED active Not Available Not Available No t Available paroxetine ER 25 mg tablet,exte nded release 24 hr TAKE 1 TABLET BY MOUTH DAILY 03/23 completed Not Available Not Available Not Available paroxetine ER 12.5 mg tablet,exte nded release 24 hr TK 1 T PO QD 01/06 completed Not Available Not Available Not Available Adult Low Dose Aspirin 81 mg tablet,leighann yed release Take 1 tablet every day by oral route. 09/06 completed Not Available Not Available Not Available Flax Seed Oil 1,000 mg capsule Take 1 capsule every day by oral route. 2015 active Not Available Not Available Not Avai lable Premarin 0.3 mg tablet take 1 tablet daily by mouth for 90 days, then take 1/2 tablet by mouth for 90 days, then discontin ue 04/17 completed Not Available Not Available Not Available Premarin 0.625 mg tablet TAKE 1 TABLET BY MOUTH DAILY active Not Available Not Available No t Available bupropion HCl XL 150 mg 24 hr tablet, extended release TAKE 1 TABLET BY MOUTH EVERY DAY IN THE MORNING active Not Available Not Available No t Available nitrofurant oin monohydrate /macrocryst als 100 mg capsule 12/19 completed Not Available Not Available Not Available vitamin B complex daily 2017 active Not Available Not Available Not Avai lable Fish Oil daily 2017 active Not Available Not Available Not Avai lable Glucosamine 12/19 completed Not Available Not Available Not Available fiber 2021 active Not Available Not Available Not Avai lable hydrochloro thiazide 12.5 mg tablet TK 1 T PO QD 11/02 completed Not Available Not Available Not Available bimatoprost 0.03 % drops with applicator, eyelash base APPLY SCANT AMOUNT TO LASH LINE AT BEDTIME active Not Available Not Available No t Available Probiotic 2021 active Not Available Not Available Not Avai lable Suprep Bowel Prep Kit 17.5 gram-3.13 gram-1.6 gram oral solution TAKE 354 ML BY MOUTH active Not Available Not Available No t Available Fluvirin 2267-2825 45 mcg (15 mcg x 3)/0.5 mL intramuscul ar suspension active Not Available Not Available N ot Available Viberzi 100 mg tablet Take 1 tablet twice a day by oral route. active Not Available Not Available No t Available Shingrix (PF) 50 mcg/0.5 mL intramuscul ar suspension, kit 09/11 completed Not Available Not Available Not Available ID NOW COVID-19 Test Kit TEST DIRECTED TODAY 09/06 completed Not Available Not Available Not Available Afluria Qd 2019- (36 mos up)(PF)60 mcg (15 mcg x4)/0.5 mL IM syringe ADM 0.5ML IM UTD 09/11 completed Not Available Not Available Not Available Paxlovid 300 mg (150 mg x 2)-100 mg tablets in a dose pack 300 mg nirmatrel vir (two 150 mg tablets) with 100 mg ritonavir (one 100 mg tablet) with all three tablets taken together orally twice daily for 5 days active Not Available Not Available No t Available Vitals Date Recorded Body mass index (BMI) Body height Heart rate Respiratory rate Body temperature Body weight Systolic blood pressure Diastolic blood pressure Provider Name and Address Organization Details Last Updated DateTime 1 27.6 kg/m2 167.64 cm 68 /min 16 /min 97.2 [degF] 85338.3 g 148 mm[Hg] 82 mm[Hg] Not Available [facility] 3 04:45:49 Date Recorded Body mass index (BMI) Body height Oxygen saturation Oxygen saturation in Arterial blood by Pulse oximetry Heart rate Respiratory rate Body weight Systolic blood pressure Diastolic blood pressure Provider Name and Address Organization Details Last Updated DateTime 2 29.1 kg/m2 167.64 cm 96 % 96 % 77 /min 16 /min 68907.6 3 g 138 mm[Hg] 80 mm[Hg] Not Available [facility] 3 04:45:49 Date Recorded Body mass index (BMI) Body height Oxygen saturation Oxygen saturation in Arterial blood by Pulse oximetry Heart rate Respiratory rate Body temperature Body weight Systolic blood pressure Diastolic blood pressure Provider Name and Address Organization Details Last Updated DateTime 2 27.6 kg/m2 167.64 cm 98 % 98 % 98 /min 16 /min 97.6 [degF] 21404.3 g 122 mm[Hg] 78 mm[Hg] Not Available [facility] 3 04:45:50 Date Recorded Body height Body temperature Body mass index (BMI) Body weight Heart rate Oxygen saturation Oxygen saturation in Arterial blood by Pulse oximetry Systolic blood pressure Diastolic blood pressure Provider Name and Address Organization Details Last Updated DateTime 3 167.64 cm 98.1 [degF] 25.8 kg/m2 71694.7 8 g 68 /min 99 % 99 % 114 mm[Hg] 70 mm[Hg] Renita Olea CMA [place] [employer] [facility] 3 10:35:48 Date Recorded Systolic blood pressure Diastolic blood pressure Provider Name and Address Organization Details Last Updated DateTime 03/23/2023 130 mm[Hg] 80 mm[Hg] CHARLES Gomez [address] [facility], [facility] [address], [place], [address], [place] [employer] [facility] 03/23/2023 10:57:05 Date Recorded Body height Body mass index (BMI) Body weight Respiratory rate Oxygen saturation Oxygen saturation in Arterial blood by Pulse oximetry Heart rate Systolic blood pressure Diastolic blood pressure Provider Name and Address Organization Details Last Updated DateTime 3 167.64 cm 25.8 kg/m2 47001.7 8 g 16 /min 98 % 98 % 75 /min 122 mm[Hg] 80 mm[Hg] BRII Marshall [facility] 15:09:04 Social History Question Answer Notes LastModified by [employer] Details LastModified Time Tobacco Smoking Status Never Smoker DERECK Smith, [facility] 10/05/2023 14:56:55 What Is Your Level Of Caffeine Consumption? Moderate [id number] Information not available 12/29/2022 How Much Tobacco Do You Chew? None [id number] Information not available 12/29/2022 In The 14 Days Before Symptom Onset, Have You Had Close Contact With A Laboratory-confirm ed COVID-19 While That Case Was Ill? No Information n ot available 10/05/2023 In The 14 Days Before Symptom Onset, Have You Had Close Contact With A Person Who Is Under Investigation For COVID-19 While That Person Was Ill? No Information not available 10/05/2023 What Type Of Diet Are You Following? REGULAR [id number] Information not available 12/29/2022 Which Illicit Or Recreational Drugs Have You Used? None Information not available 10/05/2023 Have There Been Any Changes To Your Family Or Social Situation? No Information no t available 10/05/2023 Do You Use Insect Repellent Routinely? No Information not available 10/05/2023 What Is Your Relationship Status? [id number] Information not available 12/29/2022 Do You Use Your Seat Belt Or Car Seat Routinely? Yes Information not available 10/05/2023 Do You Have Smoke And Carbon Monoxide Detectors In Your Home? Yes Information not available 10/05/2023 How Much Tobacco Do You Smoke? No [id number] Information not available 12/29/2022 Do You Use Sunscreen Routinely? Yes Information not available 10/05/2023 Have You Recently Traveled Abroad? No Information not available 10/05/2023 Do You Have Any Dietary Restrictions? No Information not available 10/05/2023 Sex: Unknown Functional Status Question Answer Note LastModified by [employer]cribe[employer] Details LastModified Time Do you use any illicit or recreational drugs? No Information not available 10/05/2023 Do you or have you ever used any other forms of tobacco or nicotine? No Information not available 10/05/2023 What is your level of alcohol consumption? Occasional [id number] Information not available 12/29/2022 Do you or have you ever used smokeless tobacco? Never used smokeless tobacco [id number] Information not available 12/29/2022 Are you currently employed? No Information not available 10/05/2023 What is your occupation? unemployed Information not available 10/05/2023 Do you or have you ever used e-cigarettes or vape? Never used electronic cigarettes Information not available 10/05/2023 What is your exercise level? Occasional [id number] Information not available 12/29/2022 Mental Status None recorded. Family History Relationship Description Onset Age of this Age Resolved Age Notes LastModified by Organization Details LastModified Time Father Heart disease [id number] Not available 12/29/2022 04:42:13 Father Cerebrovascu lar accident 88 Not available 03/2023 14:56:54 Mother Parkinson's disease Not available 2022 14:56:54 Medical History Condition Response ANXIETY DISORDER Y DEPRESSION (INCLUDING POST ) Y BOWEL PROBLEMS Y BACK / NECK PROBLEMS Y HEARTBURN / REFLUX Y HYPERTENSION Y HIGH CHOLESTEROL / HYPERLIPIDEMIA Y Gynecological History Statement/Question Response Abnormal Pap N Date of Last Mammogram 11/14/2020 Date of Last Colonoscopy 11/07/2020 Date of LMP 11/09/1999 Sexually Active? Y Menses Monthly N Date of Last Pap 04/21/2005 Current Control Method Hysterectom y Obstetrics History GPAL:G 3 P 0 0 0 3 Type Value Living 3 Total 3 Immunizations Vaccine Type Date Status Note Provider Nam e and Address Organization Details Recorded Time zoster, unspecified formulation 0 completed Not Available [facility] 12/29/2022 05:06:19 Influenza, split virus, quadrivalent, preservative 0 completed Not Available [facility] 12/29/2022 05:06:19 COVID-19, mRNA, LNP-S, PF, 30 mcg/0.3 mL dose 1 completed Not Available [facility] 12/29/2022 05:06:19 Influenza, split virus, quadrivalent, preservative 1 completed Not Available [facility] 12/29/2022 05:06:19 influenza, unspecified formulation 6 completed Not Available [facility] 12/29/2022 05:06:20 influenza, unspecified formulation 5 completed Not Available [facility] 12/29/2022 05:06:20 Tdap 8 completed Not Available [facility] 12/29/2022 05:06:20 Past Encounters Encounter ID Performer Location Encounter Start Date Encounter Closed Date Diagnosis/Indication Diagnosis SNOMED-CT Code Diagnosis ICD10 Code Diagnosis Note [id number] CHARLES Gomez [facility] [place] [address] [place] [address] 04/17/2021 00:00:00 04/28/2021 03:30:00 [id number] CHARLES Gomez [facility] [place] [address] [place] [address] 01/20/2022 00:00:00 01/26/2022 22:20:55 [id number] CHARLES Gomez [facility] [place] [address] [place] [address] 09/06/2022 00:00:00 09/29/2022 20:28:34 [id number] CHARLES Gomez [facility] [place] [address] [place] [address] 03/23/2023 10:28:59 03/23/2023 11:00:58 Adult health examination 066775517 Z00.01 annual wellness completed. Benign ess ential hypertension 4498706 I10 stable on medication Hypothyroidism 58989324 E03.9 stable on supplement . due for updated TFTs Mixed hyperlipidemia 267 378971 E78.2 on statin therapy pravastati n 80mg daily. LDL still running mild elevation in aug 2022 but due for updated fasting labs due. Anxiety 40043735 F41.9 stable on wellbutrin Impaired g lucose tolerance 6009701 R73.03 5.9% on last lab aug 2022. due for updated lab Long-term drug therapy 479273809 Z79.899 routine CBC and CMP due [id number] CHARLES Gomez [facility] [place] [address] [place] [address] 10/05/2023 14:55:56 10/05/2023 15:47:17 Benign essential hypertension 1804274 I10 stable on medication Hypothyroidism 06962699 E03.9 stable on supplement Mixed hyperlipidemia 267 880938 E78.2 on statin therapy pravastati n 80mg daily. LDL is at 129 up slightly. Anxiety 96921359 F41.9 stable on wellbutrin Impaired g lucose tolerance 5186192 R73.03 6% Long-term drug therapy 425072338 Z79.899 labs reviewed and UTD Health Concerns Section Related Observation LastModified by Organization Detai ls LastModified Time None Recorded Concern Status LastModified by Organization Details LastModified Time None Recorded Advance Directives Directive None Recorded Payers Encounter Date Sequence Insurance Name Policy Number Policy Castro Covered Member ID Castro Member ID Guarantor Name 03/23/2023 1 [place] [id number] John Dawn [id number] Kiara Dawn 10/05/2023 1 [place] [id number] John Dawn [id number] Kiara Dawn Notes Date Note Type Note Provider Name and Address Organization Details Recorded Time 021 text/h tml Anxiety/DepressionReported bypatient.Quality:doesnt matter Severity:denies suicidal ideations; able to maintain relationships;interference with household activities;interference with sleep;interference with work Duration:symptoms lasting over 2 weeks Onset/Timing:still present Context:no major life stressors Modifying Factors:medications as directed Associated Symptoms:denies homicidal ideations; no significant weight gain; no significant weight loss; no visual/auditory hallucinations; no delusions; no shortness of breath; mood good; no anxiety; no crying spells; no panic; no isolation; sleeping well; appetite good; energy good; no apathy; maintaining functionalityGeneric HPI TemplateReported bypatient.Quality:IBSHyperlipidemiaRe ported bypatient.Duration:chronic Control:usually well controlled Current Therapy:currently taking: (pravastatin 40mg) Compliance:compliant; compliant with diet;does not exercise Complications:no coronary artery disease; no peripheral artery disease; no cardiovascular disease Risk Factors:hypertensionHypertensionRepor nany bypatient.Onset/Timing:better Alleviating Factors:medication Self Care:under emotional stress Associated Symptoms:no shortness of breath; no palpitations; no decline in exercise capacity; no snoring;fatigue Not Available [employer] 04/28/2021 03:30:00 022 text/h tml Anxiety/DepressionReported bypatient.Quality:doesnt matter time of day. Severity:denies suicidal ideations; able to maintain relationships;interference with household activities;interference with sleep Duration:symptoms lasting over 2 weeks Onset/Timing:still present Context:major life stressors( dx w/cancer in May and daughter had baby premature) Modifying Factors:medications as directed Associated Symptoms:denies homicidal ideations; no significant weight gain; no significant weight loss; no visual/auditory hallucinations; no delusions; no shortness of breath; mood good; no anxiety; no crying spells; no panic; no isolation; sleeping well; appetite good; energy good; no apathy; maintaining functionalityHyperlipidemiaReported bypatient.Duration:chronic Control:usually well controlled Current Therapy:currently taking: (pravastatin 40mg) Compliance:compliant; exercises;noncompliant with diet Complications:no coronary artery disease; no peripheral artery disease; no cardiovascular disease Risk Factors:hypertensionHypertensionRepor nany bypatient.Duration:has noted for months Onset/Timing:better Alleviating Factors:medication Self Care:under emotional stress Associated Symptoms:no shortness of breath; no palpitations; no decline in exercise capacity; no snoring;fatigue Not Available [employer] 01/26/2022 22:20:55 022 text/h tml Anxiety/DepressionReported bypatient.Quality:symptoms worse in the evening Severity:denies suicidal ideations; able to maintain relationships;interference with sleep Duration:symptoms lasting over 2 weeks Onset/Timing:still present Context:major life stressors Modifying Factors:medications as directed Associated Symptoms:denies homicidal ideations; no significant weight gain; no significant weight loss; no visual/auditory hallucinations; no delusions; no shortness of breath; mood good; no anxiety; no crying spells; no panic; no isolation; sleeping well; appetite good; energy good; no apathy; maintaining functionality HyperlipidemiaReported bypatient.Duration:chronic Control:usually well controlled Current Therapy:currently taking: (pravastatin) Compliance:compliant; compliant with diet;does not exercise Complications:no coronary artery disease; no peripheral artery disease; no cardiovascular diseaseHypertensionReported bypatient.Duration:has noted for years Onset/Timing:better Alleviating Factors:medication Self Care:under emotional stress Associated Symptoms:no shortness of breath; no fatigue; no palpitations; no decline in exercise capacity; no snoringHypothyroidismReported bypatient.Quality:not changing Duration:constant Onset/Timing:still present Context/Risk:normal thyroid levels; no history of head or neck radiation during childhood; no history of thyroid disease; no history of hyperthyroidism; no excess iron exposure;history of hypothyroidism;female gender Modifying Factors:medication Exerciseno exercise Associated Symptoms:no cold intolerance; no heat intolerance; no weight loss; no weight gain; no double vision; no dry eyes; no hoarseness; no difficulty swallowing; no neck masses; no deepening of the voice; no fast heart rate; no increased blood pressure; no palpitations; no chest pain; no chest tightess or pressure; no constipation; no diarrhea; no vomiting; no decreased appetite; no loose stools; no irregular menstrual periods; no excessive sweating; no joint pain; no numbness; no tingling of the hands or feet; no dry skin; no tremor; no nervousness; no anxiety; no depression; no fatigue; no sleep difficulties; no skin changes; no hair changes Not Available [facility] [employer] [facility] 09/29/2022 20:28:34 023 text/h tml Anxiety, Generalized DisorderReported bypatient.Associated Symptoms:no difficulty concentrating; no difficulty controlling worry; no difficulty swallowing; no anxiety; no excessive sweating; no hot flashes; no palpitations; no shortness of breath; no nausea; no diarrhea; no fatigue; no irritability; no muscle tension; no muscle aches; no trembling; no twitching; no headaches; no restlessness; no sleep disturbancesHyperlipidemiaReported bypatient.Notes:stable on medication statinHypertensionReported bypatient.Onset/Timing:better Associated Symptoms:no shortness of breath; no fatigue; no palpitations; no decline in exercise capacity; no snoringHypothyroidismReported bypatient.Onset/Timing:better Context/Risk:normal thyroid levels; no history of head or neck radiation during childhood; no history of thyroid disease; no history of hypothyroidism; no history of hyperthyroidism; no excess iron exposure Exercisegets exercise Associated Symptoms:no cold intolerance; no heat intolerance; no weight loss; no weight gain; no double vision; no dry eyes; no hoarseness; no difficulty swallowing; no neck masses; no deepening of the voice; no fast heart rate; no increased blood pressure; no palpitations; no chest pain; no chest tightess or pressure; no constipation; no diarrhea; no vomiting; no decreased appetite; no loose stools; no irregular menstrual periods; no excessive sweating; no joint pain; no numbness; no tingling of the hands or feet; no dry skin; no tremor; no nervousness; no anxiety; no depression; no fatigue; no sleep difficulties; no skin changes; no hair changes No to all COVID ?s CHARLES Gomez [address] [place] [address], [address], [facility] 03/27/2023 20:59:55 023 text/h tml Anxiety/DepressionReported bypatient.Quality:doesnt matter time of day. Severity:denies suicidal ideations; able to maintain relationships;interference with sleep Duration:symptoms lasting over 2 weeks Onset/Timing:still present Context:no major life stressors Associated Symptoms:denies homicidal ideations; no significant weight gain; no significant weight loss; no visual/auditory hallucinations; no delusions; no shortness of breathHyperlipidemiaReported bypatient.Duration:chronic Control:usually well controlled Compliance:compliant;noncompliant with diet;does not exercise Complications:no coronary artery disease; no peripheral artery disease; no cardiovascular disease Risk Factors:hypertensionHypertensionRepor nany bypatient.Duration:has noted for years Onset/Timing:better Alleviating Factors:medication Associated Symptoms:no shortness of breath; no fatigue; no palpitations; no decline in exercise capacity; no snoringHypothyroidismReported bypatient.Quality:not changing Duration:constant Onset/Timing:still present Context/Risk:normal thyroid levels; no history of head or neck radiation during childhood; no history of thyroid disease; no history of hypothyroidism; no history of hyperthyroidism; no excess iron exposure Modifying Factors:medication Exercisegets exercise Associated Symptoms:no cold intolerance; no heat intolerance; no weight loss; no weight gain; no double vision; no dry eyes; no hoarseness; no difficulty swallowing; no neck masses; no deepening of the voice; no fast heart rate; no increased blood pressure; no palpitations; no chest pain; no chest tightess or pressure; no constipation; no diarrhea; no vomiting; no decreased appetite; no loose stools; no irregular menstrual periods; no excessive sweating; no joint pain; no numbness; no tingling of the hands or feet; no dry skin; no tremor; no nervousness; no anxiety; no depression; no fatigue; no sleep difficulties; no skin changes; no hair changes CHARLES Gomez [address] [facility], [address], [address], [place] [facility] 10/26/2023 15:56:29 OBGyn Episode No OBEpisode recorded.
--- OUTSIDE RECORDS SUMMARY | 2025-03-19 14:14 | XMS_ITS | Data Portability ---
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 Role Phone YOU HUYNH Primary Care Provider Unavailab le Assessment Encounter Date Assessment Date Assessment LastModified by Organization Details LastModified Time 03/09/2024 03/09/2024 Mammogram colonoscopy eye dental Not available 03/09/2024 14:18:45 09/18/2024 09/18/2024 Mammogram up-to-date with Gynecology we do not have a copy at this time colonoscopy up-to-date November 19, 2020 eye up-to-date this 2023 dental every 6 months Not available 09/29/2024 17:53:21 Plan of Treatment Reminders Order Date Submit Date Provider Last Modified By Organization Details Last Modified Time Details Appointments ANY 15 2024 02:15P M CHARLES Gomez Not available Not available Not available Lab HbA1c (hemoglob in A1c), blood 2023 025 [email or web address] [employer] Plan [facility], [address], [place], [address], 12/24/2024 09:52:34 CMP, serum or plasma 2023 025 [email or web address] [facility], [address], [place], [address], 12/24/2024 09:52:33 CBC w/ auto diff 2023 025 [email or web address] [facility], [address], [address], [place], [address], 12/24/2024 09:52:33 TSH + free T4, serum 2023 025 [email or web address] [facility], [address], [address], [place], [address], 12/24/2024 09:52:32 lipid panel, serum 2023 025 [email or web address] [facility], [address], [address], [place], [address], 12/24/2024 09:52:32 HbA1c (hemoglob in A1c), blood 2023 024 [email or web address] [facility], [address], [address], [place], [address], 06/26/2024 11:47:19 CMP, serum or plasma 2023 024 [email or web address] [facility], [address], [address], [place], [address], 06/26/2024 11:47:40 CBC w/ auto diff 2023 024 [email or web address] [facility], [address], [address], [place], [address], 06/26/2024 11:47:27 vitamin B12 + folate, serum or blood 2023 024 [email or web address] [facility], [address], [address], [place], [address], 06/26/2024 11:47:34 lipid panel, serum 2023 024 [email or web address] [facility], [address], [address], [place], [address], 06/26/2024 11:47:59 TSH + free T4, serum [facility], [address], [address], [place], [address], 06/26/2024 11:47:46 T3, free, serum or plasma 2023 024 [place] [address] [facility], [address], [address], [place], [address], 06/26/2024 11:47:52 Referral None recorded. Procedures polysomno graphy, split night (PROC) [address] [facility], [address] [place], [address], 03/07/2025 12:23:20 Surgeries None recorded. Imaging home sleep study - Procedure code [id number] 2023 024 [facility] ([facility]), [address] [place] [address], [address], 04/10/2024 16:34:02 DEXA 2023 024 [facility], [address], [facility] [address], [place], [address], 03/18/2025 15:59:39 Medication Orders hydroxyzi ne HCl 25 mg tablet 2023 024 [facility] #[id number], [address], [id number], 03/09/2024 14:50:10 Wegovy 0.25 mg/0.5 mL subcutane ous pen injector 2023 024 [facility] #[id number], [address], [id number], 03/12/2024 11:07:06 Patient TargetsNo targets recorded. Patient InstructionsNo instructions recorded. Reason for Referral None Reported. Results Created Date Observation Date Name Description Value Unit Range Abnormal Flag Note LastModifiedBy Organization Detail LastModifiedTime 03/09/20 24 11/07/2020 colon oscop y scree aman (PROC ) No observ ation record ed. BARCODE Not Available 2023 11:43:34 04/10/20 24 03/27/2024 sleep study No observ ation record ed. [email or web address] [facility] [address], [place], [address], 04/20/2024 12:23:31 07/09/20 24 07/09/2024 XR, knee No observ ation record ed. [email or web address] [facility] [address], [place], [address], 07/09/2024 12:47:39 Result Notes None recorded. Problems Name Problem SNOMED Code Status Onset Date Resolution Date Notes Provider Name and Address Organization Details Recorded Time Benign essential hypertension 1755158 Active 2023 CHARLES Gomez Attn: Jessica fernandes,[address] [place], [address], [facility] 4 11:00:26 Hyperlipidemia 81761344 Active 2023 CHARLES Gomez Attn: Jessica fernandes,[address] [place], [address], [place] [facility] 4 11:00:28 Hypothyroidism 18509185 Active 2023 CHARLES Gomez Attn: Jessica fernandes,[address] [place], [address], [place] [facility] 4 11:00:29 Prediabetes 328996466 Active 2023 CHARLES Gomez Attn: Jessica fernandes,[address] [place], [address], [place] [facility] 4 11:00:30 Mixed anxiety and depressive disorder 479225983 Active 2023 CHARLES Gomez Attn: Jessica fernandes,[address] [facility], [place], [address], [facility] 4 11:00:32 Dyssomnia 60019707 Active 2023 CHARLES Gomez Attn: Jessica fernandes,[address] [facility], [place], [address], [facility] 4 11:00:33 Sleep disorder 90581983 Active 2023 CHARLES Gomez Attn: Jessica fernandes,[address] [facility], [place], [address], [facility] 4 11:00:34 Long-term drug therapy Active 2023 CHARLES Gomez Attn: Jessica fernandes,[address] [facility], [place], [address], [facility] - [facility] 4 11:00:36 Body mass index 20-24 - normal 984777269 Active 2023 Ramiro Ro MA null, [place] - [facility] 4 10:47:05 Problem Notes None recorded. Procedures Surgical History Date Name Laterality Status Provider Name and Address Organization Details Recorded Time hysterectomy completed Ramiro Ro MA [facility] 03/09/2024 15:19:03 Imaging Results Imaging Date Name Status LastModified by Organiz ation Details LastModified Time 11/07/2020 colonoscopy screening (PROC) completed BARCODE Information not available 03/09/2024 11:43:34 03/27/2024 sleep study completed [facility] [address] [place], [address], 04/20/2024 12:23:31 07/09/2024 XR, knee completed [email or web address] [facility] [address] [place] [address] [place] [address], [address], 07/09/2024 12:47:39 Procedure Notes None recorded. Medical Equipment None Reported. Allergies No known drug allergies Medications Name Sig Start Date Stop Date Status Note LastModified by Organization Details LastModified Time bupropion HCl SR 150 mg tablet,12 hr sustained-r elease TAKE 1 TABLET BY MOUTH TWICE DAILY 03/09 completed Not Available Not Available Not Available ofloxacin 0.3 % eye drops INSTILL 1 DROP IN RIGHT EYE FOUR TIMES DAILY FOR 1 WEEK 03/09 completed Not Available Not Available Not Available ciprofloxac in 500 mg tablet TAKE 1 TABLET BY MOUTH EVERY 12 HOURS FOR 7 DAYS 03/09 completed Not Available Not Available Not Available losartan 100 mg-hydrochl orothiazide 25 mg tablet Take 1 tablet every day by oral route for 90 days. active Not Available Not Available No t Available pravastatin 80 mg tablet TAKE 1 TABLET BY MOUTH ONCE DAILY active Not Available Not Available No t Available levothyroxi ne 50 mcg tablet one tab po daily 2023 active Not Available Not Available Not Avai lable hydroxyzine HCl 25 mg tablet Take 1 tablet as needed by oral route for 15 days. active Not Available Not Available No t Available moxifloxaci n 0.5 % eye drops INSTILL 1 DROP IN RIGHT EYE THREE TIMES DAILY FOR 1 WEEK 03/09 completed Not Available Not Available Not Available bupropion HCl XL 150 mg 24 hr tablet, extended release one tab po daily 2023 active Not Available Not Available Not Avai lable bimatoprost 0.03 % drops with applicator, eyelash base APPLY SCANT AMOUNT TO LASH LINE AT BEDTIME active Not Available Not Available No t Available Mounjaro 7.5 mg/0.5 mL subcutaneou s pen injector INJECT 7.5 MG SUBCUTANE OUSLY ONCE A WEEK 07/27 completed Not Available Not Available Not Available Mounjaro 5 mg/0.5 mL subcutaneou s pen injector INJECT 5 MG SUBCUTANE OUSLY ONCE A WEEK, EVERY 7 DAYS 04/30 completed Not Available Not Available Not Available Mounjaro 10 mg/0.5 mL subcutaneou s pen injector INJECT 10 MG UNDER THE SKIN ONE TIME PER WEEK, EVERY 7 DAYS. 11/26 completed Not Available Not Available Not Available Mounjaro 12.5 mg/0.5 mL subcutaneou s pen injector INJECT 1 SYRINGE SUBCUTANE OUSLY ONCE A WEEK 2024 active Not Available Not Available Not Avai lable Mounjaro 2.5 mg/0.5 mL subcutaneou s pen injector 04/30 completed Not Available Not Available Not Available Vitals Date Recorded Body height Body mass index (BMI) Body weight Respiratory rate Oxygen saturation Oxygen saturation in Arterial blood by Pulse oximetry Heart rate Systolic blood pressure Diastolic blood pressure Provider Name and Address Organization Details Last Updated DateTime 4 163.2 cm 27.4 kg/m2 66436.3 7 g 20 /min 97 % 97 % 80 /min 132 mm[Hg] 82 mm[Hg] Ramiro Ro MA [facility] 14:29:41 Date Recorded Systolic blood pressure Diastolic blood pressure Provider Name and Address Organization Details Last Updated DateTime 03/09/2024 128 mm[Hg] 80 mm[Hg] CHARLES Gomez Attn: Accounting,[address] [place], [address] 03/09/2024 14:52:02 Date Recorded Body height Body mass index (BMI) Body weight Respiratory rate Oxygen saturation Oxygen saturation in Arterial blood by Pulse oximetry Heart rate Systolic blood pressure Diastolic blood pressure Provider Name and Address Organization Details Last Updated DateTime 4 163.2 cm 23.7 kg/m2 00715.3 4 g 20 /min 99 % 99 % 82 /min 126 mm[Hg] 82 mm[Hg] Ramiro Ro MA [facility] 10:52:02 Date Recorded Systolic blood pressure Diastolic blood pressure Provider Name and Address Organization Details Last Updated DateTime 09/18/2024 110 mm[Hg] 80 mm[Hg] CHARLES Gomez Attn: Accounting,[address] [place], [address] 09/18/2024 11:07:25 Social History Question Answer Notes LastModified by Organizat ion Details LastModified Time Tobacco Smoking Status Never Smoker Ramiro Ro MA null, [facility] 03/08/2024 12:12:07 Do You Have An Advance Directive? Yes Information not available 03/08/2024 Are You Blind Or Do You Have Difficulty Seeing? No Glasses Information not available 03/08/2024 What Is Your Level Of Caffeine Consumption? Moderate Information not available 03/08/2024 In The 14 Days Before Symptom Onset, Have You Had Close Contact With A Laboratory-confir med COVID-19 While That Case Was Ill? No Information not available 03/08/2024 In The 14 Days Before Symptom Onset, Have You Had Close Contact With A Person Who Is Under Investigation For COVID-19 While That Person Was Ill? No Information not available 03/08/2024 Have You Been To An Area Known To Be High Risk For COVID-19? No Information not available 03/08/2024 Are You Deaf Or Do You Have Serious Difficulty Hearing? No Information not available 03/08/2024 What Type Of Diet Are You Following? REGULAR Information not available 03/08/2024 Are There Any Guns Present In Your Home? No Information not available 03/08/2024 What Was The Date Of Your Most Recent Tobacco Screening? 09/18/2024 Information not available 09/18/2024 What Is Your Relationship Status? Information not available 03/08/2024 Do You Use Your Seat Belt Or Car Seat Routinely? Yes Information not available 03/08/2024 Do You Have Smoke And Carbon Monoxide Detectors In Your Home? Yes Information not available 03/08/2024 Do You Use Sunscreen Routinely? Yes Information not available 03/08/2024 Has Tobacco Cessation Counseling Been Provided? Yes Information not available 03/08/2024 On What Date Was Tobacco Cessation Counseling Provided? 09/18/2024 Information not available 09/18/2024 Sex: Female Functional Status Question Answer Note LastModified by Organizat ion Details LastModified Time Do you use any illicit or recreational drugs? No Information not available 03/08/2024 Do you or have you ever used any other forms of tobacco or nicotine? No Information not available 03/08/2024 What is your level of alcohol consumption? Occasional Information not available 03/08/2024 Are you currently employed? No Information not available 09/18/2024 Are you able to care for yourself? Yes Information n ot available 03/08/2024 What is your exercise level? Moderate Information not available 03/08/2024 Mental Status None recorded. Family History Relationship Description Onset Age of this Age Resolved Age Notes LastModified by Organization Details LastModified Time Father Coronary arterioscler osis [email or web address] Not available 2023 15:19:32 Father Heart disease [email or web address] Not available 2023 15:19:43 Mother Depressive disorder [email or web address] Not available 2023 15:19:38 Medical History Condition Response Coronary Artery Disease N Other N High Blood Pressure Y Atrial Fibrillation N Kidney or Bladder Problems N Thyroid Problems N GI Problems N Depression Y COPD N Blood Clots N Skin Problems N Anemia N Heart Attack (CA) N Anxiety Disorder Y Diabetes N Muscle, Joint, or Bone Problems Y Seizures/Epilepsy N Acid Reflux (GERD) N Cancer N Stroke N Asthma N Allergies Y High Cholesterol Y Hepatitis N Liver Disease N Headaches N Heart Failure N Osteoporosis N Gynecological History Statement/Question Response Menses Monthly N Current Control Method Menopause Obstetrics History GPAL:G 3 P 3 0 0 3 Type Value Full Term 3 Induced 0 Spontaneous 0 Premature 0 Living 3 Total 3 Immunizations Vaccine Type Date Status Note Provider Nam e and Address Organization Details Recorded Time Influenza, recombinant, quadrivalent, PF 3 completed Ramiro Ro [place] null, [place] [facility] 09/18/2024 10:46:38 zoster recombinant 0 completed Ramiro [place] [facility] 09/18/2024 10:46:38 zoster recombinant 0 completed Ramiro Ro [place] [facility] 09/18/2024 10:46:38 COVID-19, mRNA, LNP-S, PF, 30 mcg/0.3 mL dose 1 completed Ramiro Ro [place] [facility] 09/18/2024 10:46:38 COVID-19, mRNA, LNP-S, PF, 30 mcg/0.3 mL dose 1 completed Ramiro Ro [place] [facility] 09/18/2024 10:46:38 COVID-19, mRNA, LNP-S, PF, 30 mcg/0.3 mL dose 1 completed Ramiro Ro [place] [facility] 09/18/2024 10:46:38 COVID-19, mRNA, LNP-S, bivalent, PF, 30 mcg/0.3 mL dose 2 completed Ramiro [place] [facility] 09/18/2024 10:46:38 COVID-19, mRNA, LNP-S, PF, gil-sucrose, 30 mcg/0.3 mL 4 completed DERECK Johnson, [place] [facility] 09/18/2024 10:46:38 Influenza, split virus, trivalent, PF 5 completed Ramiro [place] [facility] 09/18/2024 10:46:38 Influenza, split virus, quadrivalent, PF 0 completed Ramiro [place] [facility] 09/18/2024 10:46:38 Influenza, split virus, quadrivalent, PF 1 completed Ramiro [place] [facility] 09/18/2024 10:46:38 Influenza, split virus, quadrivalent, PF 2 completed Ramiro [place] [facility] 09/18/2024 10:46:38 COVID-19, mRNA, LNP-S, PF, gil-sucrose, 30 mcg/0.3 mL 4 completed Ramiro [place] [facility] 09/18/2024 15:27:30 Influenza, MDCK, trivalent, PF 4 completed Rami[place] [facility] 09/18/2024 15:28:52 Pneumococcal conjugate PCV21, polysaccharide [id number] conjugate, PF 4 completed Ramiro [place] [facility] 09/18/2024 15:30:19 [facility] completed Ramiro Ro MA [facility] 12/26/2024 17:04:56 Past Encounters Encounter ID Performer Location Encounter Start Date Encounter Closed Date Diagnosis/Indication Diagnosis SNOMED-CT Code Diagnosis ICD10 Code Diagnosis Note [id number] Dave Oreilly MD [facility] [address] [place] [address] 03/09/2024 14:14:12 03/09/2024 15:47:34 Benign essential hypertension 2782307 I10 128/80 stable on losartan hctz 100/25mg daily Hyperlipidemia 06729640 E78.5 stable on pravastati n 80mg daily . due for fasting labs in march Hypothyroidism 66667249 E03.9 stable on supplement Rx. due for labs in march Mixed anxi ety and depressive disorder 755491650 F41.8 stable on wellbutrin XL 150mg daily. no c/o. Long-term drug therapy 423334700 Z79.899 routine labs due in march. Dyssomnia 27273264 G47.9 trial of hydroxyzin e 25mg -50mg qhs Sleep disorder 48941249 G47.9 refer for home sleep study. Screening for osteoporosis 165288623 Z13.820 dexa scan due. Prediabetes 798995400 R7 3.03 diet controlled and exercise. repeat a1c in march. Body mass index 25-29 - overweight 666416010 Z68.27 pt requests [employer] course. [id number] Dave Oreilly MD [facility] [address] [place] [address] 09/18/2024 10:41:24 09/18/2024 13:44:34 Body mass index 20-24 - normal 988106585 Z68.23 BMI is 23.7 Benign ess ential hypertension 7847671 I10 stable on losartan hctz 100/25mg daily Hyperlipidemia 02475504 E78.5 stable on pravastati n 80mg daily . Due for updated fasting lipids in December Hypothyroidism 70314358 E03.9 stable on supplement Rx. Repeat thyroid panel due in December Prediabetes 437715717 R7 3.03 diet controlled and exercise. 5.5% on last labs we will repeat again in December Mixed anxi ety and depressive disorder 681650261 F41.8 stable on wellbutrin XL 150mg daily. no c/o. Dyssomnia 01858409 G47.9 Patient has hydroxyzin e available as needed for evening dosing Sleep disorder 49745912 G47.9 refer for home sleep study. She is curious if she still has sleep apnea after having significan t weight loss Long-term drug therapy 335506969 Z79.899 CBC and CMP due in March heal th examination 160224795 Z00.01 Annual wellness exam complete Health Concerns Section Related Observation LastModified by Organization Detai ls LastModified Time None Recorded Concern Status LastModified by Organization Details LastModified Time None Recorded Advance Directives Directive Y: Payers Encounter Date Sequence Insurance Name Policy Number Policy Castro Covered Member ID Castro Member ID Guarantor Name 03/09/2024 1 [facility] [id number] [facility] [id number] Kiara Dawn 09/18/2024 1 [facility] [id number] [facility] [id number] Kiara Dawn Notes Date Note Type Note Provider Name and Address Organization Details Recorded Time 024 text/ht ml Anxiety/DepressionReported bypatient.Notes:stable on bupropion XLHyperlipidemiaReported bypatient.Notes:stable on pravastatin 80mg dailyHypertensionReported bypatient.Notes:stable on losartan hctz 100/25mg daily.ThyroidReported bypatient.Notes:stable on levothyroxine 50mcg daily CHARLES Gomez Attn: [address] [place], [address], [facility] 03/12/2024 11:00:52 024 text/ht ml Anxiety/DepressionReported bypatient.Notes:stable on bupropion XL 150 mg daily and quite stable without complaintHyperlipidemiaReported bypatient.Notes:stable on pravastatin 80mg daily. All labs are up-to-date and stableHypertensionReported bypatient.Notes:stable on losartan hctz 100/25mg daily.ThyroidReported bypatient.Notes:stable on levothyroxine 50mcg daily, due for updated labs prediabetes--A1c is now down to 5.5% as she has been on Mounjaro therapy that she has been paying for [id number]. She has had terrific results and glucose management as well as weight loss. CHARLES Gomez Attn: Accounting, [address] [facility], [place], [address], [facility] 09/29/2024 17:54:35 OBGyn Episode No OBEpisode recorded.
--- OUTSIDE RECORDS SUMMARY | 2025-03-19 14:15 | XMS_ITS | Referral Summary ---
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 Name Role Phone Balbina Galdamez Primary Care Pr ovider Allergies No known active allergies Medications No known medications Active Problems No known active problems Social History Tobacco Use Types Packs/Day Years Used Date Smoking Tobacco: Never Assessed Comments Unknown Sex and Gender Information Value Date Recorded Sex Assigned at Not on file Legal Sex Female 12:07 PM [employer] Gender Identity Not on file Sexual Orientation Not on file Last Filed Vital Signs Vital Sign Reading Time Taken Comments Blood Pressure 110/74 04/11/2022 6:38 PM CDT Pulse 100 04/11/2022 6:38 PM CDT Temperature 37.1 C (98.7 F) 04/11/2022 6:38 PM CDT Respiratory Rate - - Oxygen Saturation 95% 04/11/2022 6:38 PM CDT Inhaled Oxygen Concentration - - Weight 79.4 kg (175 lb 1.6 oz) 04/11/2022 6:38 P M CDT Height 166.4 cm (5' 5.5 ) 04/11/2022 6:38 PM CDT Body Mass Index 28.7 04/11/2022 6:38 PM CDT Plan of Treatment Not on file Insurance [facility] [facility] Address: [place] [address] Care Teams Ballast Cleaning Machine Operator Relationship Specialty Start Date End Date Balbina Galdamez PA PCP - General Physician Phone Circuit Operator 04/11/22
--- OUTSIDE RECORDS SUMMARY | 2025-03-19 14:15 | XMS_ITS | Clinical Summary ---
Author Organization [facility] Address [address] [place] [address] Care Team Providers Care Activity Leader Name Role Phone Unavailable Primary Care Provider Unavailabl e Source Comments [facility],non-owned Affiliates and Associated Physician Practices is amultiple site organization consisting of ambulatory clinics and hospital sitesin [place], [place], [place] and [place]. This disclosure is being madepursuant to the Care Everywhere program and may not contain all information available regarding this patient. Last updated 18.[facility] Allergies No known active allergies Medications * Be aware that medications may not be up to date on this document. Alwaysverify current medications with the patient. pravastatin (PRAVACHOL) 20 MG tablet Take 20 mg by mouth at bedtime Active estrogens, conjugated, (PREMARIN) 0.3 MG tablet Take 0.3 mg by mouth once daily Active hydroCHLOROthia zide (HYDRODIURIL) 25 MG tablet Take 25 mg by mouth once daily Active PARoxetine CR 24hr (PAXIL-CR) 25 MG tablet Take 25 mg by mouth once daily Active Active Problems No known active problems Family History Relation Name Status Comments Father Mother Social History Tobacco Use Types Packs/Day Years Used Date Smoking Tobacco: Never Smokeless Tobacco: Never Alcohol Use Standard Drinks/Week Comments Yes 0 (1 standard drink = 0.6 oz pur e alcohol) 3 drinks a week Comments No Sex and Gender Information Value Date Recorded Sex Assigned at Not on file Legal Sex Female 6:24 AM CARD READER Gender Identity Not on file Sexual Orientation Not on file Last Filed Vital Signs Vital Sign Reading Time Taken Comments Blood Pressure 130/82 11/02/2019 10:17 AM CARD READER Pulse 80 11/02/2019 10:17 AM CARD READER Temperature 36.8 C (98.2 F) 11/02/2019 10:17 AM CARD READER Respiratory Rate 22 11/02/2019 10:17 AM CARD READER Oxygen Saturation 96% 11/02/2019 10:17 AM CARD READER Inhaled Oxygen Concentration - - Weight 77.1 kg (170 lb) 11/02/2019 10:17 AM CARD READER Height 167.6 cm (5' 6 ) 11/02/2019 10:17 AM CARD READER Body Mass Index 27.44 11/02/2019 10:17 AM CARD READER Plan of Treatment Health Maintenance Due Date Last Done Comments COLOGUARD (AGES 45-75) - COL ON CA SCREENING 1960 COLON MONITORING 1960 COLONOSCOPY - COLON CA SCREENING 1960 CT COLONOGRAPHY - COLON CA SCREENING 1960 Colorectal Cancer Screening 1960 FIT - COLON CA SCREENING 1960 FLEX SIG - COLON CA SCREENING 1960 MAMMOGRAM 1960 HIV SCREENING 1975 HEPATITIS C SCREENING 03/18/1978 DTAP/TDAP/TD VACCINES (1 - Tdap) 1979 PNEUMOCOCCAL VACCINE 50+ (1 of 1 - PCV) 2010 ZOSTER VACCINE (1 of 2) 2010 SCREENING FOR DIABETES 11/02/2019 COVID-19 VACCINE ( - 2023-2 5 season) 2024 DEPRESSION SCREENING 10/31/2024 INFLUENZA VACCINE (Season Ended) 2025 Respiratory Syncytial Virus (RSV) Vaccine Pt: or over 60 yrs (1 - 1-dose 75+ series) 2035 HEPATITIS B VACCINE Aged Out No longe r eligible based on patient's age to complete this topic HIB VACCINE Aged Out No longer eligi ble based on patient's age to complete this topic HPV VACCINE Aged Out No longer eligi ble based on patient's age to complete this topic MENINGOCOCCAL (Group B) VACC INE SHARED DECISION-MAKING Aged Out No longer eligibl e based on patient's age to complete this topic MENINGOCOCCAL GROUPS A/C/Y/W VACCINE Aged Out No longer eligible b ased on patient's age to complete this topic Insurance [employer]
--- OUTSIDE RECORDS SUMMARY | 2025-03-19 14:15 | XMS_ITS | Clinical Summary ---
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 Gender Identity Not on file Sexual Orientation Not on file Obstetrics History Last Filed Vital Signs Vital Sign Reading [...] 04/11/2022 6:38 PM CDT Plan of Treatment Health Maintenance Due Date Last Done Comments Breast Cancer Screening-Mammogram 1960 Cervical Cancer Screening 1960 Colon Cancer Screening-Colonoscopy 1960 Depression Screening 1960 Hepatitis C Screening 1960 Hepatitis B Screening 1978 Regular Well Visit/Exam 18-64 1978 Covid-19 Vaccine ( season) 2024 07/20/2021, 01/16/2021, 12/26/2020 Influenza Vaccine (Season Ended) 2025 07/20/2021, 07/11/2020, 07/31/2016, Additional history exists DTaP/Tdap/Td Vaccine (2 - Td or Tdap) 11/02/2027 11/02/2017 Zoster Vaccine Completed 09/10/2020, 08/31, 07/11/2020 Pneumococcal vaccine <65 Aged Out No longer eligible based on patient's age to complete this topic Insurance [facility] Care Teams Skiver Uppers Or Linings Relationship Specialty Start Date End Date Balbina Galdamez PA PCP - General Physician Risk Consultant 04/11/22
--- OUTSIDE RECORDS SUMMARY | 2025-03-19 14:15 | XMS_ITS | CONTINUITY OF CARE DOCUMENT ---
Author Name fiordaliza mancera Address Unknown Organization [place] [facility] Address [address] [place] [address] [address] [place] [address] Phone [phone] Care Team Providers Care Ribbon Weaver Name Role Phone Becca Connell MD Unavailable YOU GREGORIO Unavailable YOU GREGORIO Unavailable [phone] INSURANCE PROVIDERS Payer name Policy type / Coverage type [place] red democrat ID [facility] [id number]
== END 2025-03-19 14:09 | disposition home or self-care (01) ==
LOC: ANHIMG 14:10
PROVIDERS: PCP Physician Assistant; Visit Provider Obstetrics & Gynecology
DX: Z13.820 Encounter for screening for osteoporosis (principal); M85.852 Other specified disorders of bone density and structure, left thigh; M85.851 Other specified disorders of bone density and structure, right thigh
CPT/HCPCS: 77080

== ENCOUNTER 2025-04-11 15:08 | Outpatient (CLI) | payer MEDICARE, SELFPAY ==
--- NOTE | ~2025-04-11 | MM_ITS ---
EXAMINATION: MM screening effie BI w gurpreet HISTORY: Screening TECHNIQUE: Craniocaudal and mediolateral oblique 3-D tomosynthesis images were obtained and synthetic 2-D images were generated. CAD analysis was submitted and interpreted. COMPARISON: No prior mammogram is available for comparison at this institution. BREAST PARENCHYMAL COMPOSITION: Not dense: There are scattered areas of fibroglandular density. FINDINGS: There is focal developing asymmetry in the upper outer quadrant of the right breast, anteri or third. The left breast is stable without evidence for malignancy. IMPRESSION: 1. Developing focal right breast asymmetry. 2. Additional mammographic views and possible breast ultrasound are recommended. BI-RADS Category 0: Incomplete: Needs additional imaging evaluation. Reviewed, dictated and finalized at location B. IMPRESSION: 1. Developing focal right breast asymmetry. 2. Additional mammographic views and possible breast ultrasound are recommended . BI-RADS Category 0: Incomplete: Needs additional imaging evaluation.
== END 2025-04-11 15:09 | disposition home or self-care (01) ==
PROVIDERS: PCP Physician Assistant; Visit Provider Obstetrics & Gynecology
DX: Z12.31 Encounter for screening mammogram for malignant neoplasm of breast (principal); R92.8 Other abnormal and inconclusive findings on diagnostic imaging of breast
CPT/HCPCS: 77063; 77067

== ENCOUNTER 2025-05-09 09:16 | Outpatient (CLI) | payer MEDICARE, SELFPAY ==
--- NOTE | ~2025-05-09 | MM_ITS ---
EXAMINATION: MM diagnostic effie RT w gurpreet HISTORY: Right breast asymmetry TECHNIQUE: Additional 3-D tomosynthesis images of the right breast were performed and synthetic 2-D i mages were generated. CAD analysis was submitted and interpreted. COMPARISON: 04/11/2025, 08/18/2023, 06/30/2022 BREAST PARENCHYMAL COMPOSITION:Not Dense. There are scattered areas of fibroglandular density. FINDINGS: Right breast asymmetry demonstrate relative effacement on spot compression, and is overall similar to prior exams. No suspicious distortion or lesion identified. No suspicious microcalcificati on. IMPRESSION: No mammographic evidence for malignancy. BI-RADS Category 1: Negative Reviewed, dictated and finalized at location .
== END 2025-05-09 09:17 | disposition home or self-care (01) ==
LOC: MICIMG 09:18
PROVIDERS: PCP Physician Assistant; Visit Provider Obstetrics & Gynecology
DX: N64.89 Other specified disorders of breast (principal)
CPT/HCPCS: 77061; 77065; G0279